=== PATIENT | female | born 1970 | race Caucasian/White ===

== ENCOUNTER 2017-05-15 20:32 | Emergency (ER) | payer MEDICAID, OTHER ==
[~2017-05-15] VITALS: Wt 82.0 kg
[2017-05-15] MEDS ORDERED: ONDANSETRON 4 MG INJ IV STA (22:07)
[2017-05-15] MEDS ORDERED: SOD CHLORIDE 0.9% 1,000 ML IV STA (22:07)
[2017-05-15] MEDS ORDERED: morphine 4 MG/ML VIAL IV STA (22:07)
--- NOTE | 2017-05-15 22:45 | ERD ---
ER Documentation Chief Complaint Date/Time DATE: 05/15/17 TIME: 22:44 Chief Complaint abdominal since yesterday HPI 47-year-old female presents to emergency department for complaints of right breast pain radiating to the right upper abdomen, right mid epigastric area that started yesterday. Patient describes the pain as sharp pain, 8/10 scale, accompanied with nausea, headache and body aches. Patient denies any redness or swelling in the right wrist area. Patient denies any trauma. Patient denies any fever. Patient denies any blood in his stool or black stool. Patient denies any medications that she took at home to help with symptoms. ROS All systems reviewed and are negative except as per history of present illness. Medications Home Meds Reported Medications [none] Unknown Strength No Conflict Check 05/15/17 Allergies Allergies: Coded Allergies: No Known Drug Allergies (Verified Allergy, Unknown, 05/15/17) PMhx/Soc Medical and Surgical Hx: pt denies Medical Hx, pt denies Surgical Hx Hx Alcohol Use: No Hx Substance Use: No Hx Tobacco Use: No Smoking Status: Never smoker FmHx Family History: No coronary disease, No diabetes, No other Physical Exam Vitals Vital Signs Date Time Temp Pulse Resp B/P Pulse Ox O2 Delivery O2 Flow Rate FiO2 05/15/17 20:44 98.1 80 20 119/79 99 Physical Exam GENERAL: The patient is well developed and appropriate for usual state of health, in no apparent distress. CHEST: Clear to auscultation bilaterally. There are no rales, wheezes or rhonchi. HEART: Regular rate and rhythm. No murmurs, clicks, rubs or gallops. No S3 or S4. ABDOMEN: Soft, nontender and nondistended. Good bowel sounds. No rebound or guarding. No gross peritonitis. No gross organomegaly or masses. No Britton sign or McBurney point tenderness. BACK: No midline or flank tenderness. EXTREMITIES: Equal pulses bilaterally. There is no peripheral clubbing, cyanosis or edema. No focal swelling or erythema. Full range of motion. Grossly neurovascularly intact. NEURO: Alert and oriented. Cranial nerves 2-12 intact. Motor strength in all 4 extremities with 5/5 strength. Sensation grossly intact. Normal speech and gait. SKIN: There is no apparent rash or petechia. The skin is warm and dry. HEMATOLOGIC AND LYMPHATIC: There is no evidence of excessive bruising or lymphedema. No gross cervical, axillary, or inguinal lymphadenopathy. Result Diagram: 05/15/17222905/15/172229 Results 24 hrs Laboratory Tests Test 05/15/17 00:00 05/15/17 22:30 Urine Color YELLOW Urine Clarity SLIGHTLY CLOUDY Urine pH 6.0 Urine Specific [place] 1.024 Urine Ketones NEGATIVEmg/dL Urine Nitrite NEGATIVEmg/dL Urine Bilirubin NEGATIVEmg/dL Urine Urobilinogen NEGATIVEmg/dL Urine Leukocyte Esterase NEGATIVELeu/ul Urine Microscopic RBC > 182/HPF Urine Microscopic WBC 0/HPF Urine Mucus FEW/HPF Urine Hemoglobin 3+mg/dL Urine Glucose NEGATIVEmg/dL Urine Total Protein NEGATIVEmg/dl White Blood Count 8.410^3/ul Red Blood Count 4.8210^6/ul Hemoglobin 14.1g/dl Hematocrit 42.3% Mean Corpuscular Volume 87.8fl Mean Corpuscular Hemoglobin 29.3pg Mean Corpuscular Hemoglobin Concent 33.3g/dl Red Cell Distribution Width 12.6% Platelet Count 50898^3/UL Mean Platelet Volume 10.3fl Neutrophils % 79.4% Lymphocytes % 15.4% Monocytes % 3.6% Eosinophils % 0.6% Basophils % 0.6% Nucleated Red Blood Cells % 0.0/100WBC Neutrophils # 6.610^3/ul Lymphocytes # 1.310^3/ul Monocytes # 0.310^3/ul Eosinophils # 0.110^3/ul Basophils # 0.110^3/ul Nucleated Red Blood Cells # 0.010^3/ul Sodium Level 142mmol/L Potassium Level 4.4mmol/L Chloride Level 106mmol/L Carbon Dioxide Level 26mmol/L Anion Gap 14 Blood Urea Nitrogen 12mg/dl Creatinine 0.71mg/dl Glucose Level 139mg/dl Calcium Level 9.5mg/dl Total Bilirubin 0.2mg/dl Direct Bilirubin 0.00mg/dl Indirect Bilirubin 0.2mg/dl Aspartate Amino Transf (AST/SGOT) 30IU/L Alanine Aminotransferase (ALT/SGPT) 42IU/L Alkaline Phosphatase 100IU/L Total Protein 8.4g/dl Albumin 4.5g/dl Globulin 3.90g/dl Albumin/Globulin Ratio 1.15 Lipase 59U/L Current Medications Medications (Trade) Dose Ordered Sig/Brien Route PRN Reason Start Time Stop Time Status Last Admin Dose Admin Sodium Chloride (NS) 1,000 ml @ 1,000 mls/hr Q1H STAT IV 05/15/17 22:07 05/15/17 23:06 DC 05/15/17 22:24 Morphine Sulfate (morphine) 4 mg ONCE STAT IV 05/15/17 22:07 05/15/17 22:09 DC 05/15/17 22:25 Ondansetron HCl 4 mg 4 mg ONCE STAT IV 05/15/17 22:07 05/15/17 22:09 DC 05/15/17 22:24 Sodium Chloride (NS) 100 ml @ ud STK-MED ONCE .ROUTE 05/16/17 00:16 05/16/17 00:17 DC Iohexol (Omnipaque 300mg/ ml) 150 ml STK-MED ONCE .ROUTE 05/16/17 00:16 05/16/17 00:17 DC Patient was given medication for pain here in emergency department, after treatment, patient verbalized feeling much better. Patient's pain is improved. Patient was given Zofran here in the emergency department. After treatment, patient was able to tolerate po fluids here in the emergency department without any vomiting. There is no signs and symptoms of dehydration. Normal saline IV bolus was given here in emergency department for rehydration, patient tolerated IV fluids. EKG was done, read by me and is normal sinus rhythm at a rate of 85, normal axis , there is no ST changes or changes in the EKG that indicates any cardiac emergencies at this time. Patient's EKG was also reviewed by Dr. Marcos. Impression: no acute findings on EKG Procedures/MDM Medical Decision Making: Pt's abdominal pain most likely is consistent with biliary colic. No liver function test elevation, no lipase elevation, no symptoms of choledocholithiasis, pancreatitis. There is low suspicion for abdominal emergencies at this time. Patients abdominal exam is normal at this time. Patients radiology exam does not show any abdominal emergencies at this time. There is low suspicion for appendicitis, cholecystitis, abdominal aortic aneurysms or peritonitis at this time. There is low suspicion for sepsis. Patient appears well and is hemodynamically stable. Disposition: Home. Condition: Stable Prescription [place], Zofran Instructions: Patient is advised to take medications as prescribed. Patient is advised to rest, increase fLuid intake and do brat diet for next 1-2 days and progress as tolerated. Patient is advised that if symptoms are worse, severe abdominal pain, uncontrolled vomiting, high fever, severe flank pain, worst signs and symptoms, to return to the emergency department immediately. Otherwise, patient can follow up with primary care doctor in 5-7 days. Disclaimer: Inadvertent spelling and grammatical errors are likely due to EHR/ dictation software use and do not reflect on the overall quality of patient care. Also, please note that the electronic time recorded on this note does not necessarily reflect the actual time of the patient encounter. Departure Diagnosis: Primary Impression: Biliary colic Condition: Stable Patient Instructions: Biliary Colic With Gallstone (Confirmed) Additional Instructions: Patient is advised to take medications as prescribed. Patient is advised to rest , increase fLuid intake and do brat diet for next 1-2 days and progress as tolerated. Patient is advised that if symptoms are worse, severe abdominal pain , uncontrolled vomiting, high fever, severe flank pain, worst signs and symptoms , to return to the emergency department immediately. Otherwise, patient can follow up with primary care doctor in 5-7 days. JADON BENEDICT NP May 15, 2017 22:45
[2017-05-15 22:58] LABS: BASOPHIL # 0.1 10^3/ul (0.0-0.1); BASOPHILS % 0.6 % (0.0-2.0); EOSINOPHILS # 0.1 10^3/ul (0.0-0.5); EOSINOPHILS % 0.6 % (0.0-7.0); HEMATOCRIT 42.3 % (37.0-47.0); HEMOGLOBIN 14.1 g/dl (12.0-16.0); LYMPHOCYTES # 1.3 10^3/ul (0.8-2.9); LYMPHOCYTES % 15.4 % (15.0-51.0); MEAN CORPUSCULAR HEMOGLOBIN 29.3 pg (29.0-33.0); MEAN CORPUSCULAR HGB CONC 33.3 g/dl (32.0-37.0); MEAN CORPUSCULAR VOLUME 87.8 fl (82.0-101.0); MEAN PLATELET VOLUME 10.3 fl (7.4-10.4); MONOCYTE # 0.3 10^3/ul (0.3-0.9); MONOCYTES % 3.6 % (0.0-11.0); NEUTROPHIL # 6.6 10^3/ul (1.6-7.5); NEUTROPHILS % 79.4 % (39.0-77.0); PLATELET COUNT 374 10^3/UL (140-415); RED BLOOD COUNT 4.82 10^6/ul (4.20-5.40); RED CELL DISTRIBUTION WIDTH 12.6 % (11.5-14.5); WHITE BLOOD COUNT 8.4 10^3/ul (4.8-10.8)
--- NOTE | 2017-05-15 23:07 | RADRPT ---
PROCEDURE: XR Chest. CLINICAL INDICATION: Right-sided chest pain. TECHNIQUE: Single frontal chest x-ray. COMPARISON: None available. FINDINGS: The cardiomediastinal silhouette is unremarkable. Mild bibasilar atelectasis is noted. No pneumothorax, pleural effusion or consolidation is seen. No acute osseous abnormality is noted. IMPRESSION: 1. Mild bibasilar atelectasis. 2. Otherwise no acute cardiopulmonary abnormality. RPTAT: HFN .Marielos Mauro MD, Date Time Electronically viewed and signed by .Marielos Mauro MD, on 05/15/2017 23:06 .N/
[2017-05-15 23:17] LABS: ALBUMIN 4.5 g/dl (3.3-4.9); ALBUMIN/GLOBULIN RATIO 1.15; BILIRUBIN,INDIRECT 0.2 mg/dl (0-1.1); BILIRUBIN,TOTAL 0.2 mg/dl (0.2-1.3); CALCIUM 9.5 mg/dl (8.4-10.2); CREATININE 0.71 mg/dl (0.44-1.00); POTASSIUM 4.4 mmol/L (3.5-5.1); TOTAL PROTEIN 8.4 g/dl (6.1-8.1)
[2017-05-16] MEDS ORDERED: IOHEXOL 300MG/ML 150 ML BTL ONE (00:16)
[2017-05-16] MEDS ORDERED: SOD CHLORIDE 0.9% 100 ML ONE (00:16)
[2017-05-16 00:50] LABS: ADD UMIC YES; UR ASCORBIC ACID NEGATIVE (NEGATIVE); UR BILIRUBIN (Dip) NEGATIVE (NEGATIVE); UR BLOOD (Dip) 3+ mg/dL (NEGATIVE); UR CLARITY SLIGHTLY CLOUDY (CLEAR); UR COLOR YELLOW (YELLOW); UR GLUCOSE (Dip) NEGATIVE (NEGATIVE); UR KETONES (Dip) NEGATIVE (NEGATIVE); UR LEUKOCYTE ESTERASE (Dip) NEGATIVE Leu/ul (NEGATIVE); UR MUCUS FEW /HPF (NONE SEEN); UR NITRITE (Dip) NEGATIVE (NEGATIVE); UR RBC > 182 /HPF (0-5); UR SPECIFIC GRAVITY (Dip) 1.024 (1.003-1.030); UR TOTAL PROTEIN (Dip) NEGATIVE (NEGATIVE); UR UROBILINOGEN (Dip) NEGATIVE (NEGATIVE)
--- NOTE | 2017-05-16 01:10 | RADRPT ---
PROCEDURE: CT ABDOMEN/PELVIS WITH CONTRAST CLINICAL INDICATION: 47-year-old female with abdominal pain. TECHNIQUE: The study was performed utilizing a [employer] VCT 64-slice CT scanner. Direct axia l sections were obtained through the abdomen and pelvis with the use of 100 cc of Omnipaque-300 nathan onic intravenous contrast material. Sagittal and coronal reformations were obtained. One or more of the following dose reduction techniques were utilized: automated exposure control, adjustment of the mA and/or kV according to patient's size or use of iterative reconstruction technique. The images were reviewed on a PACS workstation. CTD/vol = 17.0 mGy; Total Exam DLP = 1011.2 mGy-cm. COMPARISON: None. FINDINGS: There is minimal bibasilar subsegmental atelectasis. There is no evidence for significant pleural e ffusion. The liver has a normal size and contour and there is diffuse decreased density throughout the liver consistent with fatty infiltration but without focal areas of abnormal density or contrast enhancement. No intrahepatic nor extrahepatic biliary ductal dilatation is seen. The gallbladder co ntains small dependent gallstone without significant wall thickening or pericholecystic fluid. The p ancreas is without areas of abnormal attenuation or contrast enhancement. This spleen is identified and has a normal size without abnormal density or contrast enhancement. The adrenal glands are unre markable. The kidneys are functional bilaterally without abnormal density. No hydroureteronephrosis nor nephroureterolithiasis is evident. The urinary bladder contains urine. There is mild retained st ool within the ascending colon without obstruction. The appendix is visualized and is without edema or surrounding inflammatory reaction. The uterus is anteflexed. Phleboliths are seen within th e pelvis. There is no significant free fluid. The aortoiliac vessels are without aneurysmal dilatat ion. The osseous structures are intact. IMPRESSION: 1. Hepatic steatosis. 2. Cholelithiasis. 3. Mild retained stool within the proximal colon. 4. No CT evidence for appendicitis. .Jose Owusu MD, Date Time Electronically viewed and signed by .Jose Owusu MD, MD on 05/16/2017 01:10 .M/
[2017-05-16] MEDS ORDERED: HYDR-906 PO (01:21)
[2017-05-16] MEDS ORDERED: ONDA4TAB14 PO (01:21)
[2017-05-16 01:54] VITALS: BP 119/76; PULSE 69; RESP 18; TEMP 98.1
== END 2017-05-16 01:57 | disposition home or self-care (01) ==
LOC: FTE 20:32
DX: K80.50 Calculus of bile duct without cholangitis or cholecystitis without obstruction (principal)
CPT/HCPCS: 36415; 71010; 74177; 80053; 81001; 83690; 85025; 93005; 96374; 96375; J2270; J2405; J7030; Q9967; Z7502; Z7610

== ENCOUNTER 2018-03-25 00:19 | Emergency (ER) | END 2018-03-25 04:56 | disposition home or self-care (01) ==

== ENCOUNTER 2018-03-28 13:01 | Emergency (ER) | END 2018-03-28 17:08 | disposition home or self-care (01) ==

== ENCOUNTER 2018-09-15 20:59 | Emergency (ER) | payer MEDICAID ==
[~2018-09-15] VITALS: Ht 162.6 cm; Wt 83.6 kg
[~2018-09-15 20:59] MED LIST: DIC20 PO; IBUP-1542 PO; ONDA4TAB8 PO
[2018-09-15 21:20] VITALS: Ht 162.6 cm; Wt 83.6 kg
[2018-09-15] MEDS ORDERED: morphine 4 MG/ML VIAL IV STA (22:59)
[2018-09-15] MEDS ORDERED: ONDANSETRON 4 MG INJ IV STA (22:59)
[2018-09-15] MEDS ORDERED: SOD CHLORIDE 0.9% 1,000 ML IV STA (22:59)
[2018-09-15] MEDS ORDERED: HYDROmorphONE 0.5 MG/0.5 ML SYG IV STA (23:58)
--- NOTE | 2018-09-16 00:35 | ERD ---
ER Documentation Chief Complaint Chief Complaint R AP 05/31 X 1 hr HPI This is a 48-year-old female presents to the emergency room for evaluation of abdominal pain. This patient states that she does have a history of gallstones. She states her abdominal pain is located in the right upper quadrant and is a sharp pain which radiates to her back. She states it does feel similar to her previous gallstone attacks. She has not followed up with any surgeon, and she continues to have a poor diet according to her son and daughter who are at bedside. She states she is also having some nausea and has vomited twice. She denies any blood in her stool or vomit. ROS All systems reviewed and are negative except as per history of present illness. Medications Home Meds Active Scripts Dicyclomine HCl (Dicyclomine HCl) 20 Mg Tablet, 20 MG PO QID for pain, #30 Prov:ANASTASIIA OLIVARES DO 03/28/18 Ondansetron Hcl* (Zofran*) 4 Mg Tablet, 4 MG PO Q8H PRN for NAUSEA AND/OR VOMITING, #12 TAB Prov:SANJAY BATEMAN MD 03/25/18 Ibuprofen* (Ibuprofen*) 600 Mg Tablet, 600 MG PO Q8 PRN for PAIN AND/OR INFLAMMATION, #30 TAB Prov:SANJAY BATEMAN MD 03/25/18 Allergies Allergies: Coded Allergies: No Known Drug Allergies (Verified Allergy, Unknown, 03/28/18) PMhx/Soc History of Surgery: Yes (laparoscopic tubal ligation) Anesthesia Reaction: No Hx Miscellaneous Medical Probl: Yes (recently dx'd gallstones) Hx Alcohol Use: No Hx Substance Use: No Hx Tobacco Use: No Smoking Status: Never smoker Physical Exam Vitals Vital Signs Date Temp Pulse Resp B/P (MAP) Pulse Ox O2 O2 Flow FiO2 Time Delivery Rate 09/15/18 104 20 117/83 100 Room Air 23:54 (94) 09/15/18 97.9 92 18 125/82 96 21:20 (96) Physical Exam INITIAL VITAL SIGNS: Reviewed by me GENERAL: The patient is well developed and appropriate for usual state of health in no apparent distress HEENT: Pupils equal, round, and reactive to light. EOMI. There is no scleral icterus. NECK: C-spine is soft and supple, there is no meningismus. There is no cervical lymphadenopathy. LUNGS: Clear to auscultation bilaterally. There are no rales, wheezes or rhonchi. HEART: Regular rate and rhythm, no murmurs, clicks, rubs or gallops. ABDOMEN: Positive Britton sign, nondistended. There are bowel sounds in all four quadrants. EXTREMITIES: There is no peripheral cyanosis or edema. No focal swelling or erythema. NEUROLOGICAL: The patient moves all four extremities with 5/5 strength. Cranial nerves II - XII are intact. Normal gait. Alert and oriented SKIN: There is no apparent rash or petechiae. HEME/LYMPHATIC: There is no evidence of excessive bruising or lymphedema. PSYCHIATRIC: The patient does not appear anxious or depressed. Result Diagram: 09/15/18230409/15/182304 Results 24 hrs Laboratory Tests Test 09/15/18 23:05 White Blood Count 11.9 10^3/ul Red Blood Count 4.83 10^6/ul Hemoglobin 13.9 g/dl Hematocrit 42.9 % Mean Corpuscular Volume 88.8 fl Mean Corpuscular Hemoglobin 28.8 pg Mean Corpuscular Hemoglobin Concent 32.4 g/dl Red Cell Distribution Width 12.4 % Platelet Count 323 10^3/UL Mean Platelet Volume 10.1 fl Immature Granulocytes % 0.300 % Neutrophils % 79.3 % Lymphocytes % 15.1 % Monocytes % 4.3 % Eosinophils % 0.5 % Basophils % 0.5 % Nucleated Red Blood Cells % 0.0 /100WBC Immature Granulocytes # 0.040 10^3/ul Neutrophils # 9.4 10^3/ul Lymphocytes # 1.8 10^3/ul Monocytes # 0.5 10^3/ul Eosinophils # 0.1 10^3/ul Basophils # 0.1 10^3/ul Nucleated Red Blood Cells # 0.0 10^3/ul Sodium Level 141 mmol/L Potassium Level 4.0 mmol/L Chloride Level 100 mmol/L Carbon Dioxide Level 26 mmol/L Anion Gap 15 Blood Urea Nitrogen 17 mg/dl Creatinine 0.73 mg/dl Est Glomerular Filtrat Rate mL/min > 60 mL/min Glucose Level 145 mg/dl Calcium Level 9.6 mg/dl Total Bilirubin 0.1 mg/dl Direct Bilirubin 0.00 mg/dl Indirect Bilirubin 0.1 mg/dl Aspartate Amino Transf (AST/SGOT) 31 IU/L Alanine Aminotransferase (ALT/SGPT) 33 IU/L Alkaline Phosphatase 95 IU/L Troponin I < 0.012 ng/ml Total Protein 8.6 g/dl Albumin 4.6 g/dl Globulin 4.00 g/dl Albumin/Globulin Ratio 1.15 Lipase 68 U/L Current Medications Medications Dose Sig/Brien Start Time Status Last (Trade) Ordered Route PRN Stop Time Admin Dose Reason Admin Sodium 1,000 ml @ Q1H STAT 09/15/18 DC 09/15/18 Chloride 1,000 mls/hr IV 22:59 23:09 09/15/18 23:58 Morphine 4 mg ONCE STAT 09/15/18 DC 09/15/18 Sulfate IV 22:59 23:09 (morphine) 09/15/18 23:01 Ondansetron 4 mg ONCE STAT 09/15/18 DC 09/15/18 HCl (Zofran IV 22:59 23:09 Inj) 09/15/18 23:01 1 mg ONCE STAT 09/15/18 DC Hydromorphone IV 23:58 HCl 09/15/18 23:59 (Dilaudid) Procedures/MDM Ultrasound gallbladder: 1. Diffuse hepatic steatosis without visible focal liver lesion or biliary d uctal dilatation. 2. Cholelithiasis without sonographic evidence of acute cholecystitis. This 48-year-old female presents to the ER for evaluation of abdominal pain. She does have a known history of gallstones. She did have tenderness in the right upper quadrant and the patient stated she had pain and vomiting. An IV line was established the patient was given IV fluids, and was given morphine. She underwent an ultrasound which shows gallstones with no signs of cholecystitis. She has no signs of transaminitis and bilirubin levels are normal. She is a white blood cell count of 11.9 however I do feel this is more reactive to the vomiting as opposed to a true infection. The patient's pain is controlled at this time with morphine and Dilaudid. She has had no vomiting after receiving Zofran and IV fluids. The patient was strongly advised to change her diet. She was also advised that she will need to follow-up with general surgery as an outpatient. The patient has been noncompliant with referrals to follow-up with a surgeon and she will be given a prescription for [place], Zofran, and will be given referral for outpatient surgery. Departure Diagnosis: Primary Impression: Biliary colic Additional Impressions: Cholelithiasis Abdominal pain Condition: Stable CINDY DAVILA DO Sep 16, 2018 00:35
[2018-09-16] MEDS ORDERED: ONDA4TAB8 PO (00:36)
[2018-09-16] MEDS ORDERED: HYDR-4011 PO (00:36)
[2018-09-16 01:02] VITALS: BP 118/73; PULSE 88; RESP 16
== END 2018-09-16 01:04 | disposition home or self-care (01) ==
LOC: E/R 20:59
DX: K80.70 Calculus of gallbladder and bile duct without cholecystitis without obstruction (principal)
CPT/HCPCS: 36415; 76705; 80053; 83690; 84484; 85025; 96374; 96375; J1170; J2270; J2405; J7030; Z7502

== ENCOUNTER 2018-10-29 09:44 | Emergency (ER) | payer MEDICAID ==
[~2018-10-29] VITALS: Wt 84.7 kg
[~2018-10-29 09:44] MED LIST changes: +HYDR-4011 PO
[2018-10-29] MEDS ORDERED: KETOROLAC 30 MG INJ IM STA (11:38)
[2018-10-29] MEDS ORDERED: ONDANSETRON (ODT) 4 MG TAB ODT STA (11:38)
[2018-10-29] MEDS ORDERED: D-ME473S2 PO (12:10)
[2018-10-29] MEDS ORDERED: IBUP-1542 PO (12:10)
[2018-10-29] MEDS ORDERED: OSEL75CA23 PO (12:10)
--- NOTE | 2018-10-29 12:13 | ERD ---
ER Documentation Chief Complaint Chief Complaint COUGH, BODYACHES, CONGESTION, THROAT PAIN X1 DAY HPI 48-year-old female presents with 1 day history of body aches, cough, congestion and fever and sore throat. She denies chest pain, vomiting, abdominal pain. ROS All systems reviewed and are negative except as per history of present illness. Medications Home Meds Active Scripts Oseltamivir Phosphate* (Tamiflu*) 75 Mg Capsule, 75 MG PO BID for 5 Days, CAP Prov:KUSHAL NIX MD 10/29/18 Ibuprofen* (Motrin*) 600 Mg Tab, 600 MG PO Q6, #15 TAB Prov:KUSHAL NIX MD 10/29/18 Dextromethorphan Hb-Promethazine Hcl* (Promethazine DM* Syrup) 473 Ml Syrup, 5 ML PO Q6 PRN for COUGH for 5 Days, ML Prov:KUSHAL NIX MD 10/29/18 Ondansetron Hcl* (Zofran*) 4 Mg Tablet, 4 MG PO Q6H for NAUSEA AND/OR VOMITING, #12 TAB Prov:CINDY DAVILA DO 09/16/18 Hydrocodone/Acetaminophen ([place] 5-325 Tablet) 1 Each Tablet, 1 TAB PO Q6H PRN for PAIN, #7 TAB Prov:CINDY DAVILA DO 09/16/18 Dicyclomine HCl (Dicyclomine HCl) 20 Mg Tablet, 20 MG PO QID for pain, #30 Prov:ANASTASIIA OLIVARES DO 03/28/18 Ondansetron Hcl* (Zofran*) 4 Mg Tablet, 4 MG PO Q8H PRN for NAUSEA AND/OR VOMITING, #12 TAB Prov:SANJAY BATEMAN MD 03/25/18 Ibuprofen* (Ibuprofen*) 600 Mg Tablet, 600 MG PO Q8 PRN for PAIN AND/OR INFLAMMATION, #30 TAB Prov:SANJAY BATEMAN MD 03/25/18 Allergies Allergies: Coded Allergies: No Known Drug Allergies (Verified Allergy, Unknown, 03/28/18) PMhx/Soc History of Surgery: Yes (laparoscopic tubal ligation) Anesthesia Reaction: No Hx Miscellaneous Medical Probl: Yes (recently dx'd gallstones) Hx Alcohol Use: No Hx Substance Use: No Hx Tobacco Use: No FmHx Family History: No diabetes, No coronary disease, No other Physical Exam Vitals Vital Signs Date Temp Pulse Resp B/P (MAP) Pulse Ox O2 O2 Flow FiO2 Time Delivery Rate 10/29/18 97.9 108 17 136/70 99 09:46 (92) Physical Exam Const: No acute distress Head: Atraumatic Eyes: Normal Conjunctiva ENT: Normal External Ears, Nose and Mouth. TMs and oropharynx normal. Neck: Full range of motion. No meningismus. Resp: Clear to auscultation bilaterally. Coarse cough without rales, wheezing or retractions. Cardio: Regular rate and rhythm, no murmurs Abd: Soft, non tender, non distended. Normal bowel sounds Skin: No petechiae or rashes Back: No midline or flank tenderness Ext: No cyanosis, or edema Neur: Awake and alert Psych: Normal Mood and Affect Results 24 hrs Laboratory Tests Test 10/29/18 11:53 POC Beta HCG, Qualitative NEGATIVE Current Medications Medications Dose Sig/Brien Start Time Status Last (Trade) Ordered Route PRN Stop Time Admin Dose Reason Admin Ketorolac 30 mg ONCE STAT 10/29/18 DC 10/29/18 Tromethamine IM 11:38 11:54 (Toradol) 10/29/18 11:39 Ondansetron 8 mg ONCE STAT 10/29/18 DC 10/29/18 HCl (Zofran ODT 11:38 11:50 Odt) 10/29/18 11:39 Procedures/MDM Patient presents with 1 day history of fever, cough, myalgias. She has no evidence of hypoxemia, signs of pneumonia, abdominal pain, chest pain. She likely has an acute viral URI or possibly influenza. We will treat empirically with Tamiflu, promethazine, ibuprofen, primary care follow-up and return precautions. The patient was stable with no new complaints during the ER course. Clinically, there is no current evidence to suggest meningitis, sepsis, acute abdomen, pneumonia, stroke, acute coronary syndrome, pulmonary embolism, aortic dissection or any other emergent condition appearing to require further evaluation or hospitalization. Patient counseled regarding my diagnostic impression and care plan. Prior to discharge all questions answered. Pt agrees with treatment plan and understands strict return precautions. Pt is instructed to follow up with primary care provider within 24-48 hours. Precautionary instructions provided including instructions to return to the ER if not improving or for any worsening or changing symptoms or concerns. Departure Diagnosis: Primary Impression: Upper respiratory infection URI type: unspecified URI Qualified Codes: J06.9 - Acute upper respiratory infection, unspecified Condition: Stable Patient Instructions: Influenza (Adult), Uri, Viral, No Abx (Adult) Referrals: NO PRIMARY,CARE PHYSICIAN (PCP) Additional Instructions: Probablamente un virus que dura 2-4 sanchez. cheque otro vez en el proximo magdaleno para mas simptomas- vomito, dolor, alessio, problemas con respirando, o con arciniega doctor primario. KUSHAL NIX MD Oct 29, 2018 12:13
[2018-10-29 12:16] VITALS: BP 131/78; PULSE 97; RESP 18
== END 2018-10-29 12:18 | disposition home or self-care (01) ==
LOC: FTE 09:44
DX: J06.9 Acute upper respiratory infection, unspecified (principal)
CPT/HCPCS: 81025; 96372; J1885; Z7502; Z7610

== ENCOUNTER 2019-02-17 07:06 | Inpatient (IN) | payer MEDICAID ==
[~2019-02-17] VITALS: Ht 149.9 cm; Wt 83.0 kg
[2019-02-17] VITALS (11 sets, daily range): BP systolic 107–140; BP diastolic 66–83; PULSE 60–95; RESP 18–32; Ht 149.9 cm; Wt 83.0 kg
[~2019-02-17 07:06] MED LIST changes: +D-ME473S2 PO; +OSEL75CA23 PO
[2019-02-17] MEDS ORDERED: ONDANSETRON 4 MG INJ IV STA (07:20)
[2019-02-17] MEDS ORDERED: morphine 4 MG/ML VIAL IV STA ×2 (07:20→09:12)
[2019-02-17] MEDS ORDERED: SOD CHLORIDE 0.9% 150 ML IV STA (07:20)
[2019-02-17] MEDS ORDERED: KETOROLAC 30 MG INJ IV STA (09:50)
--- NOTE | 2019-02-17 11:47 | HP ---
Date/Time of Note Date/Time of Note DATE: 02/17/19 TIME: 11:47 Assessment/Plan VTE Prophylaxis SCD applied (from Nsg): Yes Pharmacological prophylaxis: NA/contraindicated Pharm contraindication: surgical contra Lines/Catheters IV Catheter Type (from Nrsg): Peripheral IV Assessment/Plan Assessment/Plan 1. Symptomatic cholelithiasis - Seen by Dr. Stevenson and appreciate consultation. Will plan for surgical intervention in the am - Will allow clears and keep NPO after midnight - LFT within normal limits - pain control - no infectious process appreciated but will give a dose of cefazolin for surgical prophylaxis 2. Diet - clears/NPO after midnight 3. DVT ppx - SCD 4. Disposition - Admit to med/surg for surgical intervention tomorrow morning. Length of stay to be determined based on post operative course. Result Diagram: 02/17/19 0730 02/17/19 0730 Results 24hrs Laboratory Tests Test 02/17/19 07:30 White Blood Count 5.0 # Red Blood Count 4.71 Hemoglobin 13.4 Hematocrit 41.2 Mean Corpuscular Volume 87.5 Mean Corpuscular Hemoglobin 28.5 L Mean Corpuscular Hemoglobin Concent 32.5 Red Cell Distribution Width 12.9 Platelet Count 310 Mean Platelet Volume 10.1 Immature Granulocytes % 0.200 Neutrophils % 42.8 Lymphocytes % 43.2 Monocytes % 10.0 Eosinophils % 2.8 Basophils % 1.0 Nucleated Red Blood Cells % 0.0 Immature Granulocytes # 0.010 Neutrophils # 2.2 Lymphocytes # 2.2 Monocytes # 0.5 Eosinophils # 0.1 Basophils # 0.1 Nucleated Red Blood Cells # 0.0 Urine Color YELLOW Urine Clarity SLIGHTLY CLOUDY A Urine pH 5.0 Urine Specific [place] 1.021 Urine Ketones NEGATIVE Urine Nitrite NEGATIVE Urine Bilirubin NEGATIVE Urine Urobilinogen NEGATIVE Urine Leukocyte Esterase NEGATIVE Urine Microscopic RBC 1 Urine Microscopic WBC 7 H Urine Squamous Epithelial Cells FEW Urine Hemoglobin NEGATIVE Urine Glucose NEGATIVE Urine Total Protein NEGATIVE Sodium Level 143 Potassium Level 4.1 Chloride Level 110 Carbon Dioxide Level 24 Anion Gap 9 Blood Urea Nitrogen 11 Creatinine 0.66 Est Glomerular Filtrat Rate mL/min > 60 Glucose Level 111 Calcium Level 8.8 Total Bilirubin 0.3 Direct Bilirubin 0.00 Indirect Bilirubin 0.3 Aspartate Amino Transf (AST/SGOT) 30 Alanine Aminotransferase (ALT/SGPT) 35 Alkaline Phosphatase 93 Total Protein 7.8 Albumin 4.2 Globulin 3.60 H Albumin/Globulin Ratio 1.16 Lipase 71 HPI/ROS Admit Date/Time Admit Date/Time 02/17/19 Hx of Present Illness 48 yo F with no significantly past medical history presents to ED with 3 days of fevers, worsening right upper and lower quadrant pain, nausea, and diminished PO intolerance, Patient states she had been experiencing abdominal discomfort for the past 9 months but has not been evaluated by PCP or ED. Patient denies any medical issues and no surgeries in the past. She denies any family history of cardiac disease or diabetes. Denies any chest pain, shortness of breath, palpitations, vomiting, urinary issues, diarrhea. Does admit to constipation but chronic. ROS All 12 systems reviewed and pertinent positives per HPI. All others negative. Constitutional: nausea; No chills, No fatigue Eyes: No discharge ENT: No congestion Respiratory: No cough, No shortness of breath, No sputum, No wheezing Cardiovascular: No chest pain, No lightheadedness, No palpitations Gastrointestinal: pain, constipation, nausea; No diarrhea, No vomiting Genitourinary: no complaints Musculoskeletal: no complaints Skin: No laceration, No rash Neurologic: No confusion, No focal-weakness, No syncope Endocrine: no complaints Lymphatic: no complaints Psychological: nl mood/affect Immunologic: no complaints PMH/Family/Social Past Medical History Medical History: no pertinent history Medications Current Medications Ondansetron HCl (Zofran Inj) 4 mg BRIDGE ORDER PRN IV NAUSEA/VOMITING; Start 02/17/19 at 12:00; Stop 02/18/19 at 11:59 Acetaminophen (Tylenol Tab) 650 mg ER BRIDGE PRN PO .MILD PAIN 1-3 OR TEMP; Start 02/17/19 at 12:00; Stop 02/18/19 at 11:59 Coded Allergies: No Known Drug Allergies (Verified Allergy, Unknown, 02/17/19) Past Surgical History Past Surgical Hx: no surgical history Family History Significant Family History: no pertinent family hx Social History Alcohol Use: none Smoking Status: Never smoker Drug Use: none Exam/Review of Systems Vital Signs Vitals Vital Signs Date Temp Pulse Resp B/P (MAP) Pulse Ox O2 O2 Flow FiO2 Time Delivery Rate 02/17/19 98.2 64 16 104/91 97 Room Air 11:00 (95) Exam Exam General: Pleasant female, distress secondary to pain, answering questions appropriately HEENT: Atraumatic, normocephalic. The pupils are equal, round and reactive. Extraocular motor are intact. Neck: Supple with full range of motion. No rigidity or meningismus Chest: Nontender Lungs: Clear to auscultation bilaterally no crackles rales or wheezing Heart: Normal S1-S2, Regular rhythm and tachycardia. No murmur, S3, or S4 Abdomen: Soft , nontender to palpation, nondistended , bowel sounds are present. No guarding no rebound tenderness , No masses or organomegaly. No costovertebral temporal angle mass Extremities: moving all extremities. no cyanosis, clubbing, or edema Neurologic: CN 2-12 intact. No focal deficits, motor and sensory intact. Additional Comments No home medications PROCEDURE: US Abdomen. CLINICAL INDICATION: Abdominal Pain TECHNIQUE: Multiple real-time images were acquired of the patient's abdomen and retroperitoneum utilizing a high resolution transducer. COMPARISON: None FINDINGS: The liver is of normal size and contour with no mass or intrahepatic ductal dilatation. There is fatty infiltration. Portal and hepatic vein are patent on color flow Doppler imaging. The common bile duct measures 4.2 millimeter in transverse diameter. multiple gallstones are identified. Gallbladder wall is not thickened and no abnormal pericholecystic fluid collection is seen. No sonographic Britton's sign was elicited during this exam. There is no ascites. The pancreas is not well visualized. The right kidney measures 10.6 cm in length. No hydronephrosis, calculus or masses present.. There is no evidence of abdominal aortic aneurysm or caval thrombosis. IMPRESSION: Cholelithiasis. No evidence of cholecystitis or biliary obstruction. Fatty liver. Poor visualization of pancreas. .Danny Flores MD, MD Date Time Electronically viewed and signed by .Danny Flores MD, MD on 02/17/2019 09:41 TRACEE KING MD Feb 17, 2019 11:47
--- NOTE | 2019-02-17 11:47 | ERD ---
ER Documentation Chief Complaint Chief Complaint R/L/Q abd paon with nausea x last night HPI 48-year-old female presents to the emergency department complaining of abdominal pain. Patient states that she has had right upper quadrant abdominal pain on and off for a long time now. However over the last 24 hours it became significantly worse. Her pain is noted to be in the right upper quadrant radiates towards her back. Associated with nausea but no fevers or chills or vomiting. Patient reports no urinary or gynecologic symptoms. She reports that her pain is severe at this time. ROS All systems reviewed and are negative except as per history of present illness. Medications Home Meds Discontinued Scripts Oseltamivir Phosphate* (Tamiflu*) 75 Mg Capsule, 75 MG PO BID for 5 Days, CAP Prov:KUSHAL NIX MD 10/29/18 Ibuprofen* (Motrin*) 600 Mg Tab, 600 MG PO Q6, #15 TAB Prov:KUSHAL NIX MD 10/29/18 Dextromethorphan Hb-Promethazine Hcl* (Promethazine DM* Syrup) 473 Ml Syrup, 5 ML PO Q6 PRN for COUGH for 5 Days, ML Prov:KUSHAL NIX MD 10/29/18 Ondansetron Hcl* (Zofran*) 4 Mg Tablet, 4 MG PO Q6H for NAUSEA AND/OR VOMITING, #12 TAB Prov:CINDY DAVILA DO 09/16/18 Hydrocodone/Acetaminophen ([place] 5-325 Tablet) 1 Each Tablet, 1 TAB PO Q6H PRN for PAIN, #7 TAB Prov:CINDY DAVILA DO 09/16/18 Dicyclomine HCl (Dicyclomine HCl) 20 Mg Tablet, 20 MG PO QID for pain, #30 Prov:ANASTASIIA OLIVARES DO 03/28/18 Ondansetron Hcl* (Zofran*) 4 Mg Tablet, 4 MG PO Q8H PRN for NAUSEA AND/OR VOMITING, #12 TAB Prov:SANJAY BATEMAN MD 03/25/18 Ibuprofen* (Ibuprofen*) 600 Mg Tablet, 600 MG PO Q8 PRN for PAIN AND/OR INFLAMMATION, #30 TAB Prov:SANJAY BATEMAN MD 03/25/18 Allergies Allergies: Coded Allergies: No Known Drug Allergies (Verified Allergy, Unknown, 6/29/19) PMhx/Soc History of Surgery: Yes (laparoscopic tubal ligation) Anesthesia Reaction: No Hx Neurological Disorder: No Hx Respiratory Disorders: No Hx Cardiac Disorders: No Hx Psychiatric Problems: No Hx Miscellaneous Medical Probl: Yes (recently dx'd gallstones) Hx Alcohol Use: No Hx Substance Use: No Hx Tobacco Use: No Smoking Status: Never smoker FmHx Noncontributory for chief complaint Physical Exam Vitals Vital Signs Date Temp Pulse Resp B/P (MAP) Pulse Ox O2 O2 Flow FiO2 Time Delivery Rate 02/17/19 98.2 64 16 104/91 97 Room Air 11:00 (95) 02/17/19 97.8 66 16 121/63 100 Room Air 09:12 (82) 02/17/19 97.8 79 19 121/77 99 07:07 (92) Physical Exam GENERAL: The patient is well developed and appropriate for usual state of health in no apparent distress HEENT: Pupils equal, round, and reactive to light. EOMI. There is no scleral icterus. NECK: C-spine is soft and supple, there is no meningismus. There is no cervical lymphadenopathy. LUNGS: Clear to auscultation bilaterally. There are no rales, wheezes or rhonchi. HEART: Regular rate and rhythm, no murmurs, clicks, rubs or gallops. ABDOMEN: Right upper quadrant pain. There is a Britton sign. No other rebound or guarding. No CVA tenderness. EXTREMITIES: There is no peripheral cyanosis or edema. No focal swelling or erythema. NEURO: The patient moves all four extremities with 5/5 strength. Cranial nerves II - XII are intact. Normal gait. Alert and oriented SKIN: There is no apparent rash or petechiae. HEME/LYMPHATIC: There is no evidence of excessive bruising or lymphedema. PSYCHIATRIC: The patient does not appear anxious or depressed. Result Diagram: 02/17/1972902/17/19 0730 Results 24 hrs Laboratory Tests Test 02/17/19 07:30 White Blood Count 5.0 10^3/ul Red Blood Count 4.71 10^6/ul Hemoglobin 13.4 g/dl Hematocrit 41.2 % Mean Corpuscular Volume 87.5 fl Mean Corpuscular Hemoglobin 28.5 pg Mean Corpuscular Hemoglobin Concent 32.5 g/dl Red Cell Distribution Width 12.9 % Platelet Count 310 10^3/UL Mean Platelet Volume 10.1 fl Immature Granulocytes % 0.200 % Neutrophils % 42.8 % Lymphocytes % 43.2 % Monocytes % 10.0 % Eosinophils % 2.8 % Basophils % 1.0 % Nucleated Red Blood Cells % 0.0 /100WBC Immature Granulocytes # 0.010 10^3/ul Neutrophils # 2.2 10^3/ul Lymphocytes # 2.2 10^3/ul Monocytes # 0.5 10^3/ul Eosinophils # 0.1 10^3/ul Basophils # 0.1 10^3/ul Nucleated Red Blood Cells # 0.0 10^3/ul Urine Color YELLOW Urine Clarity SLIGHTLY CLOUDY Urine pH 5.0 Urine Specific [place] 1.021 Urine Ketones NEGATIVE mg/dL Urine Nitrite NEGATIVE mg/dL Urine Bilirubin NEGATIVE mg/dL Urine Urobilinogen NEGATIVE mg/dL Urine Leukocyte Esterase NEGATIVE Wil[place]/ul Urine Microscopic RBC 1 /HPF Urine Microscopic WBC 7 /HPF Urine Squamous Epithelial Cells FEW /HPF Urine Hemoglobin NEGATIVE mg/dL Urine Glucose NEGATIVE mg/dL Urine Total Protein NEGATIVE mg/dl Sodium Level 143 mmol/L Potassium Level 4.1 mmol/L Chloride Level 110 mmol/L Carbon Dioxide Level 24 mmol/L Anion Gap 9 Blood Urea Nitrogen 11 mg/dl Creatinine 0.66 mg/dl Est Glomerular Filtrat Rate mL/min > 60 mL/min Glucose Level 111 mg/dl Calcium Level 8.8 mg/dl Total Bilirubin 0.3 mg/dl Direct Bilirubin 0.00 mg/dl Indirect Bilirubin 0.3 mg/dl Aspartate Amino Transf (AST/SGOT) 30 IU/L Alanine Aminotransferase (ALT/SGPT) 35 IU/L Alkaline Phosphatase 93 IU/L Total Protein 7.8 g/dl Albumin 4.2 g/dl Globulin 3.60 g/dl Albumin/Globulin Ratio 1.16 Lipase 71 U/L Current Medications Medications Dose Sig/Brien Start Time Status Last (Trade) Ordered Route PRN Stop Time Admin Dose Reason Admin Sodium 150 ml @ Q1H STAT 02/17/19 DC 02/17/19 Chloride 150 mls/hr IV 07:20 07:24 02/17/19 08:19 Morphine 4 mg ONCE STAT 02/17/19 DC 02/17/19 Sulfate IV 07:20 07:25 (morphine) 02/17/19 07:21 Ondansetron 4 mg ONCE STAT 02/17/19 DC 02/17/19 HCl (Zofran IV 07:20 07:25 Inj) 02/17/19 07:21 Morphine 4 mg ONCE STAT 02/17/19 DC 02/17/19 Sulfate IV 09:12 09:15 (morphine) 02/17/19 09:13 Ketorolac 30 mg ONCE STAT 02/17/19 DC 02/17/19 Tromethamine IV 09:50 09:52 (Toradol) 02/17/19 09:51 Ondansetron 4 mg BRIDGE ORDER 02/17/19 HCl (Zofran PRN IV 12:00 Inj) NAUSEA/VOMITI 02/18/19 11:59 NG 650 mg ER BRIDGE 02/17/19 Acetaminophen PRN PO 12:00 (Tylenol .MILD PAIN 02/18/19 11:59 Tab) 1-3 OR TEMP Procedures/MDM Patient was taken to a room, seen and evaluated. Comfort measures were initiated. Diagnostic tests were ordered and reviewed. RADIOLOGY: Reviewed with the radiologist CONSULTATION: Hospitalist was notified for admission Dr. Stevenson was consulted and surgical consultation REEVALUATION: Patient's pain required multiple medications for control. Marquise golden was made to admit after results were reviewed with the patient and her family. MEDICAL DECISION MAKING: Patient presents with abdominal pain of uncertain etiology. Differential diagnosis considered includes appendicitis, diverticulitis, cholecystitis and other intra-abdominal medical and surgical concerns. I have reviewed the patients lab studies and imaging as well as multiple examinations of the abdomen. Patient's diagnostic evaluation shows evidence of what appears to be an ongoing biliary colic with severe unrelenting pain. She has had multiple evaluations for similar type pain and clearly has evidence of gallstones, with her pain so difficult to control, she will be admitted to the hospital for observation, pain control and consideration of surgical consultation as per my conversations with the on-call surgeon Departure Diagnosis: Primary Impression: Gallstone Condition: JONELLE Gonsales Feb 17, 2019 11:47
[2019-02-17] MEDS ORDERED: ACETAMINOPHEN 325 MG TAB PO PRN ×2 (12:00)
[2019-02-17] MEDS ORDERED: NACL 0.9% 3 ML SYG IV SCH (12:00)
[2019-02-17] MEDS ORDERED: morphine 2 MG INJ IV PRN ×4 (12:00→20:00)
[2019-02-17] MEDS ORDERED: MAGNESIUM HYDROXIDE 30ML CUP PO PRN (12:00)
[2019-02-17] MEDS ORDERED: ONDANSETRON 4 MG INJ IV PRN ×3 (12:00→19:00)
[2019-02-17] MEDS ORDERED: HYDROCODONE/APAP (5/325) TAB PO PRN (12:00)
[2019-02-17] MEDS ORDERED: DOCUSATE SODIUM 100 MG CAP PO PRN (12:00)
--- NOTE | 2019-02-17 12:54 | CONS ---
Assessment/Plan Assessment/Plan Assessment/Plan (Daily) Acute cholecystitis Plan: Laparoscopic cholecystectomy is recommended. I have discussed the procedu re, indications, outcomes alternatives and risks in detail with the patient who has an excellent understanding of the nature of her situation and agrees to the proposed plan of therapy as outlined. Because of OR availability and logistics, surgery will be performed tomorrow morning. Consultation Date/Type/Reason Admit Date/Time Date of Consultation: Feb 17, 2019 Type of Consult General surgery Reason for Consultation Acute cholecystitis Date/Time of Note DATE: 02/17/19 TIME: 12:51 Hx of Present Illness The patient is a 48-year-old female who was recently diagnosed with gallstones. She presents with a 1 day history of severe midepigastric and right upper quadrant abdominal pain. Imaging studies confirmed gallstones and findings compatible with cholecystitis. Her LFTs are normal. She has had no fevers, chills or jaundice. Review of systems: HEENT: Unremarkable Pulmonary: No history of asthma, pneumonia or shortness of breath Cardiac: No history of chest pain, MA or arrhythmia GI: As in the HPI : Asymptomatic Past Medical History Medical History: gallstones Home Meds Discontinued Scripts Oseltamivir Phosphate* (Tamiflu*) 75 Mg Capsule, 75 MG PO BID for 5 Days, CAP Prov:KUSHAL NIX MD 10/29/18 Ibuprofen* (Motrin*) 600 Mg Tab, 600 MG PO Q6, #15 TAB Prov:KUSHAL NIX MD 10/29/18 Dextromethorphan Hb-Promethazine Hcl* (Promethazine DM* Syrup) 473 Ml Syrup, 5 ML PO Q6 PRN for COUGH for 5 Days, ML Prov:KUSHAL NIX MD 10/29/18 Ondansetron Hcl* (Zofran*) 4 Mg Tablet, 4 MG PO Q6H for NAUSEA AND/OR VOMITING, #12 TAB Prov:CINDY DAVILA DO 09/16/18 Hydrocodone/Acetaminophen ([place] 5-325 Tablet) 1 Each Tablet, 1 TAB PO Q6H PRN for PAIN, #7 TAB Prov:CINDY DAVILA DO 09/16/18 Dicyclomine HCl (Dicyclomine HCl) 20 Mg Tablet, 20 MG PO QID for pain, #30 Prov:ANASTASIIA OLIVARES DO 03/28/18 Ondansetron Hcl* (Zofran*) 4 Mg Tablet, 4 MG PO Q8H PRN for NAUSEA AND/OR VOMITING, #12 TAB Prov:SANJAY BATEMAN MD 03/25/18 Ibuprofen* (Ibuprofen*) 600 Mg Tablet, 600 MG PO Q8 PRN for PAIN AND/OR INFLAMMATION, #30 TAB Prov:SANJAY BATEMAN MD 03/25/18 Medications Current Medications Dextrose/Sodium Chloride 1,000 ml @ 100 mls/hr Q10H IV ; Start 02/17/19 at 11:45 IV Flush (NS 3 ml) 3 ml PER PROTOCOL IV ; Start 02/17/19 at 12:00 Ondansetron HCl (Zofran Inj) 4 mg Q6H PRN IV NAUSEA/VOMITING; Start 02/17/19 at 12:00 Acetaminophen (Tylenol Tab) 650 mg Q6H PRN PO .PAIN 1-3 OR TEMP; Start 02/17/19 at 12:00 Acetaminophen/ Hydrocodone Bitart ([place] (5/325)) 1 tab Q6H PRN PO .MOD PAIN 4- 6; Start 02/17/19 at 12:00 Morphine Sulfate (morphine) 2 mg Q4H PRN IV .SEVERE PAIN 7-10; Start 02/17/19 at 12:00 Docusate Sodium (Colace) 100 mg Q12H PRN PO .CONSTIPATION; Start 02/17/19 at 12:00 Magnesium Hydroxide (Milk Of Mag) 30 ml DAILY PRN PO .CONSTIPATION; Start 02/17/19 at 12:00 Famotidine (Pepcid Iv) 20 mg Q12 IV ; Start 02/17/19 at 21:00 Allergies: Coded Allergies: No Known Drug Allergies (Verified Allergy, Unknown, 02/17/19) Past Surgical History Past Surgical Hx: no surgical history Social History Alcohol Use: none Smoking Status: Never smoker Exam/Review of Systems Exam Vitals Vital Signs Date Temp Pulse Resp B/P (MAP) Pulse Ox O2 O2 Flow FiO2 Time Delivery Rate 02/17/19 98.2 64 16 104/91 97 Room Air 11:00 (95) Constitutional: alert, oriented Psych: no complaints Head: normocephalic Eyes: nl conjunctiva ENMT: nl external ears & nose Neck: supple Respiratory: clear to auscultation Cardiovascular: regular rate and rhythm Gastrointestinal: soft, tender (Light tenderness epigastric area) Extremities: normal pulses Neurological: L[employer] II-XII intact Lymph: nl lymph nodes Results Result Diagram: 02/17/19 0730 02/17/19 0730 Results 24hrs Laboratory Tests Test 02/17/19 07:30 White Blood Count 5.0 # Red Blood Count 4.71 Hemoglobin 13.4 Hematocrit 41.2 Mean Corpuscular Volume 87.5 Mean Corpuscular Hemoglobin 28.5 L Mean Corpuscular Hemoglobin Concent 32.5 Red Cell Distribution Width 12.9 Platelet Count 310 Mean Platelet Volume 10.1 Immature Granulocytes % 0.200 Neutrophils % 42.8 Lymphocytes % 43.2 Monocytes % 10.0 Eosinophils % 2.8 Basophils % 1.0 Nucleated Red Blood Cells % 0.0 Immature Granulocytes # 0.010 Neutrophils # 2.2 Lymphocytes # 2.2 Monocytes # 0.5 Eosinophils # 0.1 Basophils # 0.1 Nucleated Red Blood Cells # 0.0 Urine Color YELLOW Urine Clarity SLIGHTLY CLOUDY A Urine pH 5.0 Urine Specific [place] 1.021 Urine Ketones NEGATIVE Urine Nitrite NEGATIVE Urine Bilirubin NEGATIVE Urine Urobilinogen NEGATIVE Urine Leukocyte Esterase NEGATIVE Urine Microscopic RBC 1 Urine Microscopic WBC 7 H Urine Squamous Epithelial Cells FEW Urine Hemoglobin NEGATIVE Urine Glucose NEGATIVE Urine Total Protein NEGATIVE Sodium Level 143 Potassium Level 4.1 Chloride Level 110 Carbon Dioxide Level 24 Anion Gap 9 Blood Urea Nitrogen 11 Creatinine 0.66 Est Glomerular Filtrat Rate mL/min > 60 Glucose Level 111 Calcium Level 8.8 Total Bilirubin 0.3 Direct Bilirubin 0.00 Indirect Bilirubin 0.3 Aspartate Amino Transf (AST/SGOT) 30 Alanine Aminotransferase (ALT/SGPT) 35 Alkaline Phosphatase 93 Total Protein 7.8 Albumin 4.2 Globulin 3.60 H Albumin/Globulin Ratio 1.16 Lipase 71 Medications Medication Current Medications Dextrose/Sodium Chloride 1,000 ml @ 100 mls/hr Q10H IV ; Start 02/17/19 at 11:45 IV Flush (NS 3 ml) 3 ml PER PROTOCOL IV ; Start 02/17/19 at 12:00 Ondansetron HCl (Zofran Inj) 4 mg Q6H PRN IV NAUSEA/VOMITING; Start 02/17/19 at 12:00 Acetaminophen (Tylenol Tab) 650 mg Q6H PRN PO .PAIN 1-3 OR TEMP; Start 02/17/19 at 12:00 Acetaminophen/ Hydrocodone Bitart ([place] (5/325)) 1 tab Q6H PRN PO .MOD PAIN 4- 6; Start 02/17/19 at 12:00 Morphine Sulfate (morphine) 2 mg Q4H PRN IV .SEVERE PAIN 7-10; Start 02/17/19 at 12:00 Docusate Sodium (Colace) 100 mg Q12H PRN PO .CONSTIPATION; Start 02/17/19 at 12:00 Magnesium Hydroxide (Milk Of Mag) 30 ml DAILY PRN PO .CONSTIPATION; Start 02/17/19 at 12:00 Famotidine (Pepcid Iv) 20 mg Q12 IV ; Start 02/17/19 at 21:00 SAILAJA KEARNEY MD Feb 17, 2019 12:54
[2019-02-17] MEDS ORDERED: KETOROLAC 15 MG INJ IV PRN (16:30)
[2019-02-17] MEDS: DEXTROSE 5%-0.45% NACL 1,000 ML IV SCH ×2 (17:16→22:39)
[2019-02-17] MEDS: CEFAZOLIN 1 GM/50 ML (PMX) 50 ML IVPB SCH ×2 (18:10→22:40)
--- NOTE | 2019-02-17 18:52 | PREAC ---
Date/Time of Note Date/Time of Note DATE: 02/17/19 TIME: 18:49 Anesthesia Eval and Record Evaluation Time Pre-Procedure Interview DATE: 02/17/19 TIME: 18:49 Age 48 Sex female NPO: 8 hrs Preoperative diagnosis cholecystitis Planned procedure wade quynh Past Medical History Past Medical History: Includes GI: Obesity Surgery & Anesthesia Issues No known issue Meds Anticoagulation: No Beta Kristi within 24 hr: No Reason Beta Kristi not given: Pt. not on B-Kristi Discontinued Scripts Oseltamivir Phosphate* (Tamiflu*) 75 Mg Capsule, 75 MG PO BID for 5 Days, CAP Prov:KUSHAL NIX MD 10/29/18 Ibuprofen* (Motrin*) 600 Mg Tab, 600 MG PO Q6, #15 TAB Prov:KUSHAL NIX MD 10/29/18 Dextromethorphan Hb-Promethazine Hcl* (Promethazine DM* Syrup) 473 Ml Syrup, 5 ML PO Q6 PRN for COUGH for 5 Days, ML Prov:KUSHAL NIX MD 10/29/18 Ondansetron Hcl* (Zofran*) 4 Mg Tablet, 4 MG PO Q6H for NAUSEA AND/OR VOMITING, #12 TAB Prov:CINDY DAVILA DO 09/16/18 Hydrocodone/Acetaminophen ([place] 5-325 Tablet) 1 Each Tablet, 1 TAB PO Q6H PRN for PAIN, #7 TAB Prov:CINDY DAVILA DO 09/16/18 Dicyclomine HCl (Dicyclomine HCl) 20 Mg Tablet, 20 MG PO QID for pain, #30 Prov:ANASTASIIA OLIVARES DO 03/28/18 Ondansetron Hcl* (Zofran*) 4 Mg Tablet, 4 MG PO Q8H PRN for NAUSEA AND/OR VOMITING, #12 TAB Prov:SANJAY BATEMAN MD 03/25/18 Ibuprofen* (Ibuprofen*) 600 Mg Tablet, 600 MG PO Q8 PRN for PAIN AND/OR INFLAMMATION, #30 TAB Prov:SANJAY BATEMAN MD 03/25/18 Current Medications Dextrose/Sodium Chloride 1,000 ml @ 100 mls/hr Q10H IV Last administered on 02/17/19at 17:16; Admin Dose 100 MLS/HR; Start 02/17/19 at 11:45 IV Flush (NS 3 ml) 3 ml PER PROTOCOL IV ; Start 02/17/19 at 12:00 Ondansetron HCl (Zofran Inj) 4 mg Q6H PRN IV NAUSEA/VOMITING Last administered on 02/17/19at 18:10; Admin Dose 4 MG; Start 02/17/19 at 12:00 Acetaminophen (Tylenol Tab) 650 mg Q6H PRN PO .PAIN 1-3 OR TEMP; Start 02/17/19 at 12:00 Acetaminophen/ Hydrocodone Bitart ([place] (5/325)) 1 tab Q6H PRN PO .MOD PAIN 4- 6 Last administered on 02/17/19at 14:48; Admin Dose 1 TAB; Start 02/17/19 at 12:00 Docusate Sodium (Colace) 100 mg Q12H PRN PO .CONSTIPATION; Start 02/17/19 at 12:00 Magnesium Hydroxide (Milk Of Mag) 30 ml DAILY PRN PO .CONSTIPATION; Start 02/17/19 at 12:00 Famotidine (Pepcid Iv) 20 mg Q12 IV ; Start 02/17/19 at 21:00 Cefazolin Sodium 50 ml @ 100 mls/hr Q8 IVPB Last administered on 02/17/19at 18:10; Admin Dose 100 MLS/HR; Start 02/17/19 at 14:00; Stop 02/18/19 at 06:29 Ketorolac Tromethamine (Toradol) 15 mg Q6H PRN IV PAIN Last administered on 02/17/19at 17:02; Admin Dose 15 MG; Start 02/17/19 at 16:30; Stop 02/20/19 at 16:29 Acetaminophen/ Hydrocodone Bitart ([place] (10/325)) 1 tab Q4H PRN PO SEVERE PAIN LEVEL 7-10; Start 02/17/19 at 16:30 Morphine Sulfate (morphine) 1 mg Q4H PRN IV .SEVERE PAIN 7-10 Last administered on 02/17/19at 18:10; Admin Dose 1 MG; Start 02/17/19 at 18:00 Meds reviewed: Yes Allergies Coded Allergies: No Known Drug Allergies (Verified Allergy, Unknown, 02/17/19) Allergies Reviewed: Yes Labs/Studies Labs Reviewed: Reviewed by anesthesiologist Result Diagram: 02/17/19 30 02/17/19 0730 Laboratory Tests 02/17/19 07:30 test: Negative Studies: ECG (n/a), CXR (n/a) Pre-procedure Exam Last vitals Vital Signs Date Temp Pulse Resp B/P (MAP) Pulse Ox O2 O2 Flow FiO2 Time Delivery Rate 02/17/19 97.8 69 19 114/69 95 Room Air 15:12 (84) Airway: Adequate mouth opening Mallampati: Mallampati I Teeth: Normal Lung: Normal Heart: Normal ASA Physical Status ASA physical status: 1 Emergency: None Planned Anesthetic General/MAC: ETT Nerve block: TAP (bilateral) Planned Pain Management Single shot nerve block, Parenteral pain med Pre-operative Attestations Prior to commencing anesthesia and surgery, the patient was re-evaluated, there was verification of: *The patient's identity *The results of appropriate recent lab work and preoperative vital signs *The above evaluation not changing prior to induction *Anesthetic plan, risk benefits, alternative and complications discussed with patient/family; questions answered; patient/family understands, accepts and wishes to proceed. MILTON PRITCHETT MD Feb 17, 2019 18:52
[2019-02-17] MEDS ORDERED: MEPERIDINE 25 MG INJ IV PRN (19:00)
[2019-02-17] MEDS ORDERED: HYDROmorphONE 1 MG/5 ML IV SYRINGE IV PRN ×3 (19:00)
[2019-02-17] MEDS ORDERED: DIPHENHYDRAMINE 50 MG INJ IV PRN (19:00)
[2019-02-17] MEDS ORDERED: KETOROLAC 30 MG INJ IV PRN (19:00)
[2019-02-17] MEDS ORDERED: FENTAnyl 50 MCG/ML VIAL IV PRN ×3 (19:00)
[2019-02-17] MEDS ORDERED: GLYCOPYRROLATE 0.4 MG INJ ONE (19:13)
[2019-02-17] MEDS ORDERED: NEOSTIGMINE 3 MG/3 ML SYRINGE ONE (19:13)
[2019-02-17] MEDS ORDERED: ROCURONIUM 50 MG INJ ONE (19:13)
[2019-02-17] MEDS ORDERED: ONDANSETRON 4 MG INJ ONE (19:15)
[2019-02-17] MEDS ORDERED: METOCLOPRAMIDE 10 MG INJ ONE (19:15)
[2019-02-17] MEDS ORDERED: KETOROLAC 30 MG INJ ONE (19:37)
[2019-02-17] MEDS ORDERED: PROPOFOL 20 ML ONE (19:37)
[2019-02-17] MEDS ORDERED: ROPIVACAINE 0.5 % 30 ML VIAL ONE (19:37)
--- NOTE | 2019-02-17 19:58 | OPR ---
Date/Time of Note Date/Time of Note DATE: 02/17/19 TIME: 19:54 Operative Report Procedure Date: Feb 17, 2019 Preoperative Diagnosis Acute cholecystitis Postoperative Diagnosis Acute cholecystitis Operation/Procedure Performed Laparoscopic cholecystectomy Surgeon Sailaja Kearney MD Quotation Clerk None Anesthesia Type: general Anesthesiologist: MILTON PRITCHETT MD Estimated Blood Loss: minimal Transfusion none Specimen Gallbladder Grafts/Implants none Tubes/Drains None Complications none Pt Condition Post Procedure: stable Disposition: PACU Indications Cholecystitis Procedure Description After satisfactory general endotracheal anesthesia was achieved, the abdomen was prepped and draped in the usual fashion. The abdomen was insufflated with carbon dioxide through an umbilical Veress needle to 15 mmHg pressure. The Veress needle was removed and the umbilical incision extended to 5 mm through which a 5 mm trocar was placed. A 5 mm 0 degree lens was placed. Laparoscopy showed an inflamed slightly edematous gallbladder. There were dense adhesions from the right lobe of the liver to the diaphragm. Under direct visualization a 12 mm epigastric trocar was placed as well as 2 more 5 mm right lateral abdominal trochars. The diaphragm to hepatic adhesions were taken down with sharp and electrocautery dissection. This allowed the dome of the gallbladder when grasped to be retracted above the liver edge. The distal gallbladder was grasped and retracted inferolaterally. The hepatoduodenal ligament was carefully dissected between the gallbladder and the very well-visualized cuauhtemoc hepatis. The cystic duct was then triply hemoclipped and divided high at the junction of the gallbladder and the cystic duct. The cystic artery was identified immediately posteriorly this was triply hemoclipped and divided between clips. The gallbladder was then dissected from below using electrocautery dissection and placed fully intact into an Endo Catch removed by the epigastric route. Hemostasis of the liver bed was total and irrigant returned clear. The abdomen was then desufflated and all trochars were removed. The fascia of the epigastrium was closed with a single suture of 0 Vicryl. The skin punctures were infiltrated with 30 cc of point 2 5% plain Marcaine and closed with alicia. Sponge and needle counts were reported as correct x2. SAILAJA KEARNEY MD Feb 17, 2019 19:58
[2019-02-17] MEDS ORDERED: OXYCODONE/ACETAMINOPHEN (5/325) TAB PO PRN ×2 (20:00)
[2019-02-17] MEDS ORDERED: BUPIVACAINE 0.25%/EPI (SDV) 30 ML INJ INJ ONE (20:13)
--- NOTE | 2019-02-17 21:25 | PAC ---
Date/Time of Note Date/Time of Note DATE: 02/17/19 TIME: 21:25 Post-Anesthesia Notes Post-Anesthesia Note Last documented vital signs Vital Signs Date Temp Pulse Resp B/P (MAP) Pulse Ox O2 O2 Flow FiO2 Time Delivery Rate 02/17/19 98.5 62 24 123/66 96 Room Air 20:57 (85) 02/17/19 98.6 8.0 20:13 Activity: WNL Respiratory function: WNL Cardiovascular function: WNL Mental status: Baseline Pain reasonably controlled: Yes Hydration appropriate: Yes Nausea/Vomiting absent: No MILTON PRITCHETT MD Feb 17, 2019 21:25
[2019-02-17] MEDS: FAMOTIDINE 20 MG INJ IV SCH (22:39)
[2019-02-18 02:15] VITALS: BP 115/64; PULSE 90; RESP 18
[2019-02-18] MEDS: CEFAZOLIN 1 GM/50 ML (PMX) 50 ML IVPB SCH (05:47)
[2019-02-18 07:40] VITALS: BP 108/63; PULSE 71; RESP 17
[2019-02-18] MEDS: DEXTROSE 5%-0.45% NACL 1,000 ML IV SCH (07:45)
[2019-02-18] MEDS: FAMOTIDINE 20 MG INJ IV SCH (08:45)
--- NOTE | 2019-02-18 10:00 | QN ---
Documentation Comment Postoperative day #1 Markedly symptomatically improved Afebrile throughout LFTs are normal Abdominal examination is benign Plan: Patient is cleared for discharge home today. I have left the patient a p rescription for [place] and Keflex. Office follow-up 1 week for staple removal SAILAJA KEARNEY MD Feb 18, 2019 09:59
[2019-02-18] MEDS: HYDROCODONE/APAP (10/325) TAB PO PRN ×2 (12:20→20:29)
--- NOTE | 2019-02-18 12:20 | PN ---
Date/Time of Note Date/Time of Note DATE: 02/18/19 TIME: 12:16 Assessment/Plan VTE Prophylaxis Risk score (from Ns)>0 risk: 3 SCD applied (from Ns): Yes Pharmacological prophylaxis: NA/contraindicated Pharm contraindication: low risk/ambulating Lines/Catheters IV Catheter Type (from Nrsg): Peripheral IV Assessment/Plan Assessment/Plan 1. Symptomatic cholelithiasis s/p lap quynh - patient tolerated surgical intervention well and cleared for discharge from Surgery standpoint - patient concerned about pain with PO intake and will monitor overnight. - pain control 2. Disposition - Will treat epigastric discomfort and if tolerating PO intake tomorrow, will d/c home Result Diagram: 02/18/19 04202/18/19422 Results 24hrs Laboratory Tests Test 02/17/19 14:26 02/17/19 17:28 02/18/19 04:23 Serum HCG, Qualitative NEGATIVE Prothrombin Time 12.5 Prothrombin Time Ratio 1.0 INR International Normalized Ratio 0.92 Activated Partial Thromboplast Time 27.1 White Blood Count 7.9 # Red Blood Count 4.29 Hemoglobin 12.2 Hematocrit 37.3 Mean Corpuscular Volume 86.9 Mean Corpuscular Hemoglobin 28.4 L Mean Corpuscular Hemoglobin Concent 32.7 Red Cell Distribution Width 12.7 Platelet Count 312 Mean Platelet Volume 10.6 H Immature Granulocytes % 0.300 Neutrophils % 78.3 H Lymphocytes % 15.1 Monocytes % 5.7 Eosinophils % 0.3 Basophils % 0.3 Nucleated Red Blood Cells % 0.0 Immature Granulocytes # 0.020 Neutrophils # 6.2 Lymphocytes # 1.2 Monocytes # 0.5 Eosinophils # 0.0 Basophils # 0.0 Nucleated Red Blood Cells # 0.0 Sodium Level 140 Potassium Level 3.9 Chloride Level 105 Carbon Dioxide Level 24 Anion Gap 11 Blood Urea Nitrogen 8 Creatinine 0.60 Est Glomerular Filtrat Rate mL/min > 60 Glucose Level 138 Calcium Level 8.5 Magnesium Level 1.7 Total Bilirubin 0.5 Direct Bilirubin 0.00 Indirect Bilirubin 0.5 Aspartate Amino Transf (AST/SGOT) 59 H Alanine Aminotransferase (ALT/SGPT) 54 Alkaline Phosphatase 65 Total Protein 6.4 # Albumin 3.4 Globulin 3.00 Albumin/Globulin Ratio 1.13 Subjective 24 Hr Interval Summary Free Text/Dictation Patient is complaining of pain in epigastric area that worsens with fluid and PO intake. Tolerated surgical intervention well. Exam/Review of Systems Exam Vitals Vital Signs Date Temp Pulse Resp B/P (MAP) Pulse Ox O2 O2 Flow FiO2 Time Delivery Rate 02/18/19 98.4 71 17 108/63 97 07:40 (78) 02/17/19 Room Air 20:57 02/17/19 8.0 20:13 Intake and Output 02/17/19 02/17/19 02/18/19 1515:00 23:00 07:00 IntakeIntake Total 1000 ml 800 ml OutputOutput Total 5 ml BalanceBalance 995 ml 800 ml Exam General: Pleasant female, mild distress secondary to reflux pain Neck: Supple Chest: Nontender Lungs: Clear to auscultation bilaterally no crackles rales or wheezing Heart: Normal S1-S2, Regular rhythm and tachycardia. No murmur, S3, or S4 Abdomen: Soft , mildly tender incision site, epigastric tenderness, nondistended , bowel sounds are present. No guarding no rebound tenderness Extremities: moving all extremities. no cyanosis, clubbing, or edema Skin: dressing on incision sites, CDI Results Results 24hrs Laboratory Tests Test 02/17/19 14:26 02/17/19 17:28 02/18/19 04:23 Serum HCG, Qualitative NEGATIVE Prothrombin Time 12.5 Prothrombin Time Ratio 1.0 INR International Normalized Ratio 0.92 Activated Partial Thromboplast Time 27.1 White Blood Count 7.9 # Red Blood Count 4.29 Hemoglobin 12.2 Hematocrit 37.3 Mean Corpuscular Volume 86.9 Mean Corpuscular Hemoglobin 28.4 L Mean Corpuscular Hemoglobin Concent 32.7 Red Cell Distribution Width 12.7 Platelet Count 312 Mean Platelet Volume 10.6 H Immature Granulocytes % 0.300 Neutrophils % 78.3 H Lymphocytes % 15.1 Monocytes % 5.7 Eosinophils % 0.3 Basophils % 0.3 Nucleated Red Blood Cells % 0.0 Immature Granulocytes # 0.020 Neutrophils # 6.2 Lymphocytes # 1.2 Monocytes # 0.5 Eosinophils # 0.0 Basophils # 0.0 Nucleated Red Blood Cells # 0.0 Sodium Level 140 Potassium Level 3.9 Chloride Level 105 Carbon Dioxide Level 24 Anion Gap 11 Blood Urea Nitrogen 8 Creatinine 0.60 Est Glomerular Filtrat Rate mL/min > 60 Glucose Level 138 Calcium Level 8.5 Magnesium Level 1.7 Total Bilirubin 0.5 Direct Bilirubin 0.00 Indirect Bilirubin 0.5 Aspartate Amino Transf (AST/SGOT) 59 H Alanine Aminotransferase (ALT/SGPT) 54 Alkaline Phosphatase 65 Total Protein 6.4 # Albumin 3.4 Globulin 3.00 Albumin/Globulin Ratio 1.13 Medications Medication Current Medications Dextrose/Sodium Chloride 1,000 ml @ 100 mls/hr Q10H IV Last administered on 02/17/19at 22:39; Admin Dose 100 MLS/HR; Start 02/17/19 at 11:45 IV Flush (NS 3 ml) 3 ml PER PROTOCOL IV ; Start 02/17/19 at 12:00 Acetaminophen (Tylenol Tab) 650 mg Q6H PRN PO .PAIN 1-3 OR TEMP; Start 02/17/19 at 12:00 Acetaminophen/ Hydrocodone Bitart ([place] (5/325)) 1 tab Q6H PRN PO .MOD PAIN 4- 6 Last administered on 02/17/19at 14:48; Admin Dose 1 TAB; Start 02/17/19 at 12:00 Docusate Sodium (Colace) 100 mg Q12H PRN PO .CONSTIPATION; Start 02/17/19 at 12:00 Magnesium Hydroxide (Milk Of Mag) 30 ml DAILY PRN PO .CONSTIPATION; Start at 12:00 Ketorolac Tromethamine (Toradol) 15 mg Q6H PRN IV PAIN Last administered on 02/17/19at 17:02; Admin Dose 15 MG; Start 02/17/19 at 16:30; Stop 02/20/19 at 16:29 Acetaminophen/ Hydrocodone Bitart ([place] (10/325)) 1 tab Q4H PRN PO SEVERE PAIN LEVEL 7-10; Start 02/17/19 at 16:30 Hydromorphone HCl (Dilaudid) 0.2 mg PACU PRN IV MILD PAIN 1-3; Start 02/17/19 at 19:00; Stop 02/20/19 at 03:00 Hydromorphone HCl (Dilaudid) 0.4 mg PACU PRN IV MOD PAIN 4-6; Start 02/17/19 at 19:00; Stop 02/20/19 at 03:00 Hydromorphone HCl (Dilaudid) 0.6 mg PACU PRN IV SEVERE PAIN 7-10; Start 02/17/19 at 19:00; Stop 02/20/19 at 03:00 Fentanyl (Sublimaze) 25 mcg PACU ORDER PRN IV MILD PAIN 1-3 Last administered on 02/17/19at 20:29; Admin Dose 25 MCG; Start 02/17/19 at 19:00; Stop 02/20/19 at 03:00 Fentanyl (Sublimaze) 50 mcg PACU ORDER PRN IV MOD PAIN 4-6; Start 02/17/19 at 19:00; Stop 02/20/19 at 03:00 Fentanyl (Sublimaze) 75 mcg PACU ORDER PRN IV SEVERE PAIN 7-10; Start 02/17/19 at 19:00; Stop 02/20/19 at 03:00 Ketorolac Tromethamine (Toradol) 30 mg PACU ORDER PRN IV FOR PAIN AFTER IV NARCOTIC MED; Start 02/17/19 at 19:00; Stop 02/20/19 at 03:00 Ondansetron HCl (Zofran Inj) 4 mg PACU ORDER PRN IV NAUSEA/VOMITING; Start 02/17/19 at 19:00; Stop 02/20/19 at 03:00 Meperidine HCl (Demerol) 25 mg PACU ORDER PRN IV .RIGORS; Start 02/17/19 at 19:00; Stop 02/20/19 at 03:00 Diphenhydramine HCl (Benadryl) 25 mg PACU ORDER PRN IV .PRURITUS; Start 02/17/19 at 19:00; Stop 02/20/19 at 03:00 Oxycodone/ Acetaminophen (Percocet (5/ 325)) 1 tab Q4H PRN PO .MILD PAIN (1-3); Start 02/17/19 at 20:00 Oxycodone/ Acetaminophen (Percocet (5/ 325)) 2 tab Q4H PRN PO .MODERATE PAIN (4-6); Start 02/17/19 at 20:00 Ondansetron HCl (Zofran Inj) 4 mg Q6H PRN IV NAUSEA/VOMITING; Start 02/17/19 at 20:00 Famotidine (Pepcid) 20 mg BID PO ; Start 02/18/19 at 21:00; Status UNV Al Hydrox/Mg Hydrox/Simethicone (Mag-Al Plus) 30 ml Q6H PRN PO GASTROINTESTINAL UPSET; Start 02/18/19 at 12:30; Status UNV TRACEE KING MD Feb 18, 2019 12:20
[2019-02-18] MEDS: AL HYDROX/MG HYDROX/SIMETH 30 ML CUP PO PRN (12:25)
[2019-02-18 14:48] VITALS: BP 120/72; PULSE 74; RESP 18
[2019-02-18 20:17] VITALS: BP 127/76; PULSE 70; RESP 18
[2019-02-18] MEDS: FAMOTIDINE 20 MG TAB PO SCH (20:29)
[2019-02-19 01:29] VITALS: BP 115/62; PULSE 63; RESP 18
[2019-02-19] MEDS: HYDROCODONE/APAP (10/325) TAB PO PRN (04:41)
[2019-02-19] MEDS ORDERED: DOCUSATE SODIUM 100 MG CAP PO ONE (05:30)
[2019-02-19] MEDS ORDERED: POLYETHYLENE GLYCOL 17 GM PACKET PO ONE (05:30)
[2019-02-19] MEDS: ONDANSETRON 4 MG INJ IV PRN ×2 (07:40→14:53)
[2019-02-19] MEDS: FAMOTIDINE 20 MG TAB PO SCH ×2 (07:40→20:51)
[2019-02-19] MEDS: AL HYDROX/MG HYDROX/SIMETH 30 ML CUP PO PRN (07:46)
[2019-02-19 07:54] VITALS: BP 116/70; PULSE 68; RESP 18
[2019-02-19] MEDS ORDERED: POTASSIUM CHLORIDE 20 MEQ POWDER FOR ORAL SOLN PO ONE (11:00)
--- NOTE | 2019-02-19 11:14 | PN ---
Date/Time of Note Date/Time of Note DATE: 02/19/19 TIME: 11:14 Objective Vitals Vital Signs Date Temp Pulse Resp B/P (MAP) Pulse Ox O2 O2 Flow FiO2 Time Delivery Rate 02/19/19 97.5 68 18 116/70 94 Room Air 07:54 (85) 02/17/19 8.0 20:13 Intake and Output 02/18/19 02/18/19 02/19/19 1515:00 23:00 07:00 IntakeIntake Total 1360 ml 480 ml 600 ml BalanceBalance 1360 ml 480 ml 600 ml Results Result Diagram: 02/19/1952002/19/19 0521 Medications Medications Current Medications IV Flush (NS 3 ml) 3 ml PER PROTOCOL IV ; Start 02/17/19 at 12:00 Acetaminophen (Tylenol Tab) 650 mg Q6H PRN PO .PAIN 1-3 OR TEMP; Start 02/17/19 at 12:00 Acetaminophen/ Hydrocodone Bitart ([place] (5/325)) 1 tab Q6H PRN PO .MOD PAIN 4- 6 Last administered on 02/17/19at 14:48; Admin Dose 1 TAB; Start 02/17/19 at 12:00 Docusate Sodium (Colace) 100 mg Q12H PRN PO .CONSTIPATION; Start 02/17/19 at 12:00 Magnesium Hydroxide (Milk Of Mag) 30 ml DAILY PRN PO .CONSTIPATION Last administered on 02/18/19at 20:29; Admin Dose 30 ML; Start 02/17/19 at 12:00 Ketorolac Tromethamine (Toradol) 15 mg Q6H PRN IV PAIN Last administered on 02/17/19at 17:02; Admin Dose 15 MG; Start 02/17/19 at 16:30; Stop 02/20/19 at 16:29 Hydromorphone HCl (Dilaudid) 0.2 mg PACU PRN IV MILD PAIN 1-3; Start 02/17/19 at 19:00; Stop 02/20/19 at 03:00 Hydromorphone HCl (Dilaudid) 0.4 mg PACU PRN IV MOD PAIN 4-6; Start 02/17/19 at 19:00; Stop 02/20/19 at 03:00 Hydromorphone HCl (Dilaudid) 0.6 mg PACU PRN IV SEVERE PAIN 7-10; Start 02/17/19 at 19:00; Stop 02/20/19 at 03:00 Fentanyl (Sublimaze) 25 mcg PACU ORDER PRN IV MILD PAIN 1-3 Last administered on 02/17/19at 20:29; Admin Dose 25 MCG; Start 02/17/19 at 19:00; Stop 02/20/19 at 03:00 Fentanyl (Sublimaze) 50 mcg PACU ORDER PRN IV MOD PAIN 4-6; Start 02/17/19 at 19:00; Stop 02/20/19 at 03:00 Fentanyl (Sublimaze) 75 mcg PACU ORDER PRN IV SEVERE PAIN 7-10; Start 02/17/19 at 19:00; Stop 02/20/19 at 03:00 Ketorolac Tromethamine (Toradol) 30 mg PACU ORDER PRN IV FOR PAIN AFTER IV NARCOTIC MED; Start 02/17/19 at 19:00; Stop 02/20/19 at 03:00 Ondansetron HCl (Zofran Inj) 4 mg PACU ORDER PRN IV NAUSEA/VOMITING; Start 02/17/19 at 19:00; Stop 02/20/19 at 03:00 Meperidine HCl (Demerol) 25 mg PACU ORDER PRN IV .RIGORS; Start 02/17/19 at 19:00; Stop 02/20/19 at 03:00 Diphenhydramine HCl (Benadryl) 25 mg PACU ORDER PRN IV .PRURITUS; Start 02/17/19 at 19:00; Stop 02/20/19 at 03:00 Ondansetron HCl (Zofran Inj) 4 mg Q6H PRN IV NAUSEA/VOMITING Last administered on 02/19/19at 07:40; Admin Dose 4 MG; Start 02/17/19 at 20:00 Famotidine (Pepcid) 20 mg BID PO Last administered on 02/19/19at 07:40; Admin Dose 20 MG; Start 02/18/19 at 21:00 Al Hydrox/Mg Hydrox/Simethicone (Mag-Al Plus) 30 ml Q6H PRN PO GASTROINTESTINAL UPSET Last administered on 02/19/19at 07:46; Admin Dose 30 ML; Start 02/18/19 at 12:30 Polyethylene Glycol (Miralax) 17 gm BID PO ; Start 02/19/19 at 21:00 Docusate Sodium (Colace) 100 mg BID PO ; Start 02/19/19 at 21:00 Simethicone (Mylicon) 160 mg Q6 PO ; Start 02/19/19 at 12:00; Status UNV Potassium Chloride (Potassium Chloride Pwd/Soln) 40 meq ONCE ONCE PO ; Start 02/19/19 at 11:00; Stop 02/19/19 at 11:01; Status UNV Sucralfate (Carafate Susp) 1 gm QID PO ; Start 02/19/19 at 13:00; Status UNV VTE Prophylaxis Risk score (from [facility])>0 risk: 2 SCD applied (from [facility]): Yes Lines/Catheters IV Catheter Type: Costa in Place: No Assessment/Plan Hospital Course Subjective Patient feeling better, clear from surgery to be discharged however still has some significant bloating and no bowel movement Objective Physical exam General: Patient is laying in bed and answers questions appropriately Mentation: Patient is alert and oriented 4, Head: Normocephalic atraumatic Eyes: EOMI, pupils reactive to light Neck: Supple, nontender, midline Respiratory: Clear to auscultation bilaterally Cardiovascular: regular rate, no obvious murmurs Gastrointestinal: Mildly tender to palpation, bowel sounds heard. Neurological: Moves all extremities spontaneously Skin: No new skin lesions Assessment and plan Symptomatic cholelithiasis status post lap quynh -Okay to discharge from surgery standpoint -Patient not tolerating good p.o. intake as she is extremely bloated, will start Carafate and simethicone schedule -Encourage bowel movements with ambulation as well as copious water drinking -Bowel regimen to include MiraLAX as needed Dizziness with walking -Patient states that there is a mild dizziness with walking will order PT OT, however this is likely secondary to having too many strong medications, will DC Percocet for now and only continue with oral [place]. Disposition -Hopefully when patient's bloating goes down patient will be discharged SANJAY FOOTE Feb 19, 2019 11:14
[2019-02-19] MEDS: SUCRALFATE (100 MG/ML) 10ML CUP PO SCH ×3 (12:04→20:51)
[2019-02-19 14:45] VITALS: BP 122/68; PULSE 107; RESP 20
[2019-02-19] MEDS: CEPHALEXIN 500 MG CAP PO SCH ×2 (14:54→20:51)
[2019-02-19 15:00] VITALS: PULSE 88
[2019-02-19] MEDS: DEXTROSE 5%-0.45% NACL 1,000 ML IV SCH (16:31)
[2019-02-19] MEDS ORDERED: HYDROCODONE/APAP (5/325) TAB PO PRN (19:00)
[2019-02-19 20:35] VITALS: BP 137/83; PULSE 74; RESP 18
[2019-02-19] MEDS: POLYETHYLENE GLYCOL 17 GM PACKET PO SCH (20:50)
[2019-02-19] MEDS: DOCUSATE SODIUM 100 MG CAP PO SCH (20:51)
[2019-02-20 01:44] VITALS: BP 114/71; PULSE 73; RESP 18
[2019-02-20] MEDS: DEXTROSE 5%-0.45% NACL 1,000 ML IV SCH ×2 (02:14→11:30)
[2019-02-20 08:05] VITALS: BP 111/73; PULSE 71; RESP 18
[2019-02-20] MEDS: DOCUSATE SODIUM 100 MG CAP PO SCH ×2 (09:07→20:23)
[2019-02-20] MEDS: FAMOTIDINE 20 MG TAB PO SCH ×2 (09:09→20:23)
[2019-02-20] MEDS: SUCRALFATE (100 MG/ML) 10ML CUP PO SCH ×4 (09:09→20:25)
[2019-02-20] MEDS: CEPHALEXIN 500 MG CAP PO SCH ×2 (09:09→20:23)
[2019-02-20] MEDS: POLYETHYLENE GLYCOL 17 GM PACKET PO SCH ×2 (09:10→20:23)
--- NOTE | 2019-02-20 09:21 | QN ---
Documentation Comment Postoperative day #3 Continued nausea and vomiting yesterday Today transaminases are elevated Plan: Consider MRCP. No new surgical recommendations SAILAJA KEARNEY MD Feb 20, 2019 09:21
[2019-02-20 14:17] VITALS: BP 101/58; PULSE 79; RESP 18
--- NOTE | 2019-02-20 16:38 | PN ---
Date/Time of Note Date/Time of Note DATE: 02/20/19 TIME: 16:38 Objective Vitals Vital Signs Date Temp Pulse Resp B/P (MAP) Pulse Ox O2 O2 Flow FiO2 Time Delivery Rate 02/20/19 98.6 79 18 101/58 98 14:17 (72) 02/19/19 Room Air 07:54 02/17/19 8.0 20:13 Intake and Output 02/19/19 02/19/19 02/20/19 1515:00 23:00 07:00 IntakeIntake Total 360 ml 50 ml 1590 ml BalanceBalance 360 ml 50 ml 1590 ml Results Result Diagram: 02/20/19 0503 02/20/19 0503 Medications Medications Current Medications IV Flush (NS 3 ml) 3 ml PER PROTOCOL IV ; Start 02/17/19 at 12:00 Acetaminophen (Tylenol Tab) 650 mg Q6H PRN PO .PAIN 1-3 OR TEMP; Start 02/17/19 at 12:00 Docusate Sodium (Colace) 100 mg Q12H PRN PO .CONSTIPATION; Start 02/17/19 at 12:00 Magnesium Hydroxide (Milk Of Mag) 30 ml DAILY PRN PO .CONSTIPATION Last administered on 02/18/19at 20:29; Admin Dose 30 ML; Start 02/17/19 at 12:00 Ondansetron HCl (Zofran Inj) 4 mg Q6H PRN IV NAUSEA/VOMITING Last administered on 02/19/19at 14:53; Admin Dose 4 MG; Start 02/17/19 at 20:00 Famotidine (Pepcid) 20 mg BID PO Last administered on 02/20/19at 09:09; Admin Dos e 20 MG; Start 02/18/19 at 21:00 Al Hydrox/Mg Hydrox/Simethicone (Mag-Al Plus) 30 ml Q6H PRN PO GASTROINTESTINAL UPSET Last administered on 02/19/19 07:46; Admin Dose 30 ML; Start 02/18/19 at 12:30 Polyethylene Glycol (Miralax) 17 gm BID PO Last administered on 02/20/19 09:10; Admin Dose 17 GM; Start 02/19/19 at 21:00 Docusate Sodium (Colace) 100 mg BID PO Last administered on 02/20/19 09:07; Ad min Dose 100 MG; Start 02/19/19 at 21:00 Simethicone (Mylicon) 160 mg Q6 PO Last administered on 02/20/19at 13:31; Admin Dose 160 MG; Start 02/19/19 at 12:00 Sucralfate (Carafate Susp) 1 gm QID PO Last administered on 02/20/19at 13:31; Admin Dose 1 GM; Start 02/19/19 at 13:00 Cephalexin (Keflex) 500 mg BID PO Last administered on 02/20/19at 09:09; Admin Dose 500 MG; Start 02/19/19 at 14:00 Acetaminophen/ Hydrocodone Bitart ([place] (5/325)) 1 tab Q8 PRN PO .MOD PAIN 4- 6; Start 02/19/19 at 19:00 VTE Prophylaxis Risk score (from Ns)>0 risk: 3 SCD applied (from [facility]): Yes Lines/Catheters IV Catheter Type: Costa in Place: No Assessment/Plan Hospital Course Subjective Patient feeling much better Objective Physical exam General: Patient is laying in bed and answers questions appropriately Mentation: Patient is alert and oriented 4, Head: Normocephalic atraumatic Eyes: EOMI, pupils reactive to light Neck: Supple, nontender, midline Respiratory: Clear to auscultation bilaterally Cardiovascular: regular rate, no obvious murmurs Gastrointestinal: Mildly tender to palpation, bowel sounds heard. Neurological: Moves all extremities spontaneously Skin: No new skin lesions Assessment and plan Symptomatic cholelithiasis status post lap quynh -Okay to discharge from surgery standpoint -Has good p.o. intake at this time -Encourage bowel movements with ambulation as well as copious water drinking -Bowel regimen to include MiraLAX as needed Dizziness with walking, resolved -Resolved Elevated AST and ALT -MRCP ordered Disposition -Pending MRCP, possible discharge tomorrow. SANJAY FOOTE Feb 20, 2019 16:38
[2019-02-20 19:57] VITALS: BP 136/83; PULSE 81; RESP 19
[2019-02-21 01:45] VITALS: BP 99/52; PULSE 63; RESP 18
[2019-02-21 07:22] VITALS: BP 118/72; PULSE 80; RESP 16
[2019-02-21] MEDS: SUCRALFATE (100 MG/ML) 10ML CUP PO SCH ×2 (08:30→12:06)
[2019-02-21] MEDS: FAMOTIDINE 20 MG TAB PO SCH (08:30)
[2019-02-21] MEDS: POLYETHYLENE GLYCOL 17 GM PACKET PO SCH (08:30)
[2019-02-21] MEDS: DOCUSATE SODIUM 100 MG CAP PO SCH (08:30)
[2019-02-21] MEDS: CEPHALEXIN 500 MG CAP PO SCH (08:30)
[2019-02-21] MEDS ORDERED: CEPH500C PO ×2 (10:52→12:24)
--- NOTE | 2019-02-21 10:54 | PDOCDIS ---
Discharge Instructions CONDITION [id number] Patient Condition: [id number] Stable FOLLOW UP/APPOINTMENTS Follow-up Plan 1. Please continue to finish all antibiotics 2. Please follow-up with Dr. Bruce Stevenson, general surgeon within 1 to 2 weeks 3. Please get repeat liver labs within 1 week to measure your enzyme levels as they were mildly elevated during this hospitalization, last AST was 95 and last ALT was 191. SANJAY FOOTE Feb 21, 2019 10:54
--- NOTE | 2019-02-21 11:07 | DS ---
Date/Time of Note Date/Time of Note DATE: 02/21/19 TIME: 11:07 Discharge Summary Admission/Discharge Info Admit Date/Time Feb 19, 2019 at 11:03 Discharge Date/Time Patient Condition: Stable Hospital Course Patient is a female with past medical history who presented to the hospital for abdominal pain. Patient was diagnosed with symptomatic cholelithiasis without cholecystitis. Patient was seen by general surgeon and had removal of her gallbladder. Patient had some mild symptoms the next day of bloating and dizziness however this quickly resolved once patient was able to have a bowel movement and was titrated off narcotic pain medication. Patient does feel very well at this time. Was seen by physical therapy and patient refuses home health physical therapy or front wheel walker at this time. Patient did have a mild elevation of AST and ALT however was not symptomatic at all. MRCP was ordered and done which did not show any significant abnormalities and patient's liver enzymes did begin to decrease the next day. Patient is doing well and was given resources to follow-up at a local clinic due to her restricted [facility] in which she was instructed to get repeat liver enzymes within 1 week. Patient also ordered to follow-up with the general surgeon within 1 to 2 weeks. Patient will be discharged without antibiotics as patient did not have cholecystitis and had removal of the gallbladder. Patient feeling well. Discharge diagnosis Symptomatic cholelithiasis status post lap quynh [place] dizziness, resolved Bloating, resolved Elevated AST and ALT, resolving Home Meds Discontinued Scripts Oseltamivir Phosphate* (Tamiflu*) 75 Mg Capsule, 75 MG PO BID for 5 Days, CAP Prov:KUSHAL NIX MD 10/29/18 Ibuprofen* (Motrin*) 600 Mg Tab, 600 MG PO Q6, #15 TAB Prov:KUSHAL NIX MD 10/29/18 Dextromethorphan Hb-Promethazine Hcl* (Promethazine DM* Syrup) 473 Ml Syrup, 5 ML PO Q6 PRN for COUGH for 5 Days, ML Prov:KUSHAL NIX MD 10/29/18 Ondansetron Hcl* (Zofran*) 4 Mg Tablet, 4 MG PO Q6H for NAUSEA AND/OR VOMITING, #12 TAB Prov:CINDY DAVILA DO 09/16/18 Hydrocodone/Acetaminophen ([place] 5-325 Tablet) 1 Each Tablet, 1 TAB PO Q6H PRN for PAIN, #7 TAB Prov:CINDY DAVILA DO 09/16/18 Dicyclomine HCl (Dicyclomine HCl) 20 Mg Tablet, 20 MG PO QID for pain, #30 Prov:ANASTASIIA OLIVARES DO 03/28/18 Ondansetron Hcl* (Zofran*) 4 Mg Tablet, 4 MG PO Q8H PRN for NAUSEA AND/OR VOMITING, #12 TAB Prov:SANJAY BATEMAN MD 03/25/18 Ibuprofen* (Ibuprofen*) 600 Mg Tablet, 600 MG PO Q8 PRN for PAIN AND/OR INFLAMMATION, #30 TAB Prov:SANJAY BATEMAN MD 03/25/18 Follow-up Plan 1. Please continue to finish all antibiotics 2. Please follow-up with Dr. Bruce Stevenson, general surgeon within 1 to 2 weeks 3. Please get repeat liver labs within 1 week to measure your enzyme levels as they were mildly elevated during this hospitalization, last AST was 95 and last ALT was 191. Primary Care Provider Care Physician No Primary Time spent on discharge: > 30 minutes Pending Labs Laboratory Tests Test 02/21/19 05:11 White Blood Count 6.1 10^3/ul (4.8-10.8) Red Blood Count 4.55 10^6/ul (4.20-5.40) Hemoglobin 13.0 g/dl (12.0-16.0) Hematocrit 39.0 % (37.0-47.0) Mean Corpuscular Volume 85.7 fl (82.0-101.0) Mean Corpuscular Hemoglobin 28.6 pg (29.0-33.0) Mean Corpuscular Hemoglobin Concent 33.3 g/dl (32.0-37.0) Red Cell Distribution Width 13.0 % (11.5-14.5) Platelet Count 307 10^3/UL (140-415) Mean Platelet Volume 10.4 fl (7.4-10.4) Immature Granulocytes % 0.300 % (0.001-0.429) Neutrophils % 57.7 % (39.0-77.0) Lymphocytes % 30.1 % (15.0-51.0) Monocytes % 8.6 % (0.0-11.0) Eosinophils % 2.6 % (0.0-7.0) Basophils % 0.7 % (0.0-2.0) Nucleated Red Blood Cells % 0.0 /100WBC (0.0-0.0) Immature Granulocytes # 0.020 10^3/ul (0.0-0.031) Neutrophils # 3.5 10^3/ul (1.6-7.5) Lymphocytes # 1.8 10^3/ul (0.8-2.9) Monocytes # 0.5 10^3/ul (0.3-0.9) Eosinophils # 0.2 10^3/ul (0.0-0.5) Basophils # 0.0 10^3/ul (0.0-0.1) Nucleated Red Blood Cells # 0.0 10^3/ul (0.0-0.0) Sodium Level 142 mmol/L (135-144) Potassium Level 3.7 mmol/L (3.5-5.1) Chloride Level 107 mmol/L (97-110) Carbon Dioxide Level 27 mmol/L (21-31) Anion Gap 8 (5-13) Blood Urea Nitrogen 10 mg/dl (7-20) Creatinine 0.76 mg/dl (0.44-1.00) Est Glomerular Filtrat Rate mL/min > 60 mL/min (>60) Glucose Level 104 mg/dl (70-220) Calcium Level 9.1 mg/dl (8.4-10.2) Magnesium Level 2.2 mg/dl (1.7-2.5) Total Bilirubin 0.5 mg/dl (0.2-1.3) Direct Bilirubin 0.00 mg/dl (0.00-0.20) Indirect Bilirubin 0.5 mg/dl (0-1.1) Aspartate Amino Transf (AST/SGOT) 95 IU/L (15-46) Alanine Aminotransferase (ALT/SGPT) 191 IU/L (13-69) Alkaline Phosphatase 105 IU/L (42-121) Total Protein 7.3 g/dl (6.1-8.1) Albumin 3.9 g/dl (3.3-4.9) Globulin 3.40 g/dl (1.3-3.2) Albumin/Globulin Ratio 1.14 SANJAY FOOTE Feb 21, 2019 11:07
== END 2019-02-21 12:45 | disposition home or self-care (01) | DRG 419 ==
LOC: E/R 07:06 → 2NE 11:41 → INTOOBSV 11:41 → OBSVTOIN 11:42 → SUATTDRO 11:44 → OBSVTOIN 02-19 11:03
PROVIDERS: ADMIT Internal Medicine; ATTEND Internal Medicine
PROC: 0FT44ZZ Resection of Gallbladder, Percutaneous Endoscopic Approach (ICD-10-PCS; principal; 2019-02-17 22:30)
DX: K80.12 Calculus of gallbladder with acute and chronic cholecystitis without obstruction (principal); E66.9 Obesity, unspecified; Z68.37 Body mass index [BMI] 37.0-37.9, adult
CPT/HCPCS: 36415; 74181; 76705; 80053; 81001; 81003; 83690; 83735; 84703; 85025; 85610; 85730; 88304; 96374; 96375; 96376; 97110; 97116; 97162; 99217; G0378; J0690; J1885; J2270; J2405; J2710; J2765; J2795; J3010; J7040; J7042